=== PATIENT | male | born 1980 | race Caucasian/White ===

== ENCOUNTER 2017-10-15 05:38 | Inpatient (IN) | payer OTHER ==
[2017-10-15] MEDS ORDERED: IV FLUID CONTINUATION 1,000 ML IV ONE (06:30)
[2017-10-15] MEDS ORDERED: HEPARIN SODIUM 1,000 UN/ML (10ML VL) IV ONE (06:43)
[2017-10-15] MEDS ORDERED: MIDAZOLAM 2 MG/2 ML VIAL IV ONE (06:44)
[2017-10-15] MEDS ORDERED: METOPROLOL TARTRATE 5 MG/5 ML VIAL IVP ONE ×2 (06:45→07:02)
[2017-10-15] MEDS ORDERED: LIDOCAINE 1% INJ 10MG/ML (20 ML MDV) SQ ONE (06:45)
[2017-10-15] MEDS: fentaNYL (PF) 50 MCG/ML 2 ML AMP IV ONE ×2 (06:52→07:20)
[2017-10-15] MEDS ORDERED: ONDANSETRON 4 MG/2 ML VIAL IVP ONE (06:55)
[2017-10-15] MEDS ORDERED: TICAGRELOR 90 MG TAB PO ONE (07:10)
[2017-10-15] MEDS ORDERED: BIVALIRUDIN BOLUS 250 MG/50 ML IV ONE (07:10)
[2017-10-15] MEDS ORDERED: BIVALIRUDIN 250 MG in SODIUM CHLORIDE 0.9% 50 ML IV ONE (07:11)
[2017-10-15] MEDS: NITROGLYCERIN 1000MCG/10ML SYRINGE INTRACORON ONE ×2 (07:16→07:18)
[2017-10-15] MEDS ORDERED: IOPAMIDOL-370 125ML BTL INJ ONE (07:20)
[2017-10-15] MEDS ORDERED: IOPAMIDOL-370 100ML BTL INJ ONE (07:24)
[2017-10-15] MEDS: SODIUM CHLORIDE 0.9% 1,000 ML IV SCH ×2 (08:00→14:30)
[2017-10-15] MEDS ORDERED: HYDROcodone/APAP 5-325MG 1 EACH TAB ONE (10:44)
[2017-10-15] MEDS ORDERED: HYDROcodone/APAP 5-325MG 1 EACH TAB PO PRN (10:50)
--- NOTE | 2017-10-15 11:09 | CC ---
CARDIAC CATHETERIZATION REPORT Mr. Day is a 36-year-old gentleman who came to the emergency room with a complaint of prolonged chest pain, started about 3 hours prior to coming to the emergency room. In the emergency room, EKG showed evidence of ST-segment elevation in the inferior leads with peaked T-wave in the anterior leads and ST depression in 1 and aVL. The patient's blood pressure was significantly elevated. The patient denied any history of diabetes, hypertension or taking of any drugs. In view of the EKG suggestive of acute ST-segment elevation myocardial infarction, patient was advised immediate cardiac catheterization. PROCEDURE: The right groin was prepped and draped in the usual manner and the skin was infiltrated with 2% Xylocaine. The right femoral artery was entered using Seldinger technique and a #6-Divehi sheath was placed in. Selective coronary angiography was then performed in multiple projections and the left ventricular pressures were obtained. The patient tolerated the procedure well. HEMODYNAMICS: Left ventricular end-diastolic pressure is 20 to 24 mmHg prior to angiography. No gradient is noted across the aortic valve. SELECTIVE CORONARY ANGIOGRAPHY: Left main coronary artery is normal and patent. LAD is a good caliber blood vessel and gives rise to first small size diagonal branch. The diagonal branch is diffusely diseased. The mid LAD is 100% occluded. Circumflex coronary artery is a large caliber blood vessel and has about 80% to 85% stenosis in its proximal portion. Right coronary artery diffusely diseased but without any hemodynamically significant stenosis. RECOMMENDATIONS: Films were reviewed with Dr. Ovalle. We will proceed with a stent to the LAD, may consider stent to the circumflex coronary artery in the next 48 hours. MMODL / IJN: [id number] /
[2017-10-15] MEDS ORDERED: ATROPINE SULFATE 0.1 MG/ML 10ML SYRINGE IV PRN (11:15)
[2017-10-15] MEDS ORDERED: NITROGLYCERIN SL TABS 0.4 MG TAB SUBLINGUAL PRN (11:15)
[2017-10-15] MEDS ORDERED: MAG HYDROX/AL HYDROX/SIMETH 30 ML CUP PO PRN (11:15)
[2017-10-15] MEDS ORDERED: ALPRAZolam 0.25 MG TAB PO PRN (11:15)
--- NOTE | 2017-10-15 11:15 | PTCA ---
PERCUTANEOUSTRANS CORORONARY ANGIOGRAPHY DATE OF SERVICE: 10/15/2017 PERFORMING PHYSICIAN: Sidney Ovalle MD, delivery merchandiser. PROCEDURE PERFORMED: 1. An aspiration thrombectomy from the left anterior descending artery. 2. Successful stenting of the mid LAD using 2.75 x 28 mm Xience CATHI with good angiographic results. INDICATION: This is a pleasant 36-year-old gentleman with hypertension who presented to the hospital with chest discomfort and was diagnosed with acute inferior ST-elevation myocardial infarction associated with peaked T-wave in the anterior leads. Because of that, the patient was seen and evaluated by Dr. Reynoso and because of the ST-segment elevation, emergent heart catheterization was recommended. The patient underwent a heart catheterization and was found to have occluded LAD in the midportion associated with severe disease in the proximal left circumflex coronary artery with mild to moderate disease involving the RCA. APPROACH: Right common femoral artery. COMPLICATION: None. LEVEL OF SEDATION: Moderate with sedation length of 24 minutes. His door to balloon was 87 minutes. PROCEDURE DESCRIPTION: After diagnostic heart catheterization was performed by Dr. Efraín Reynoso and after reviewing the angiogram, we decided to pursue with intervention on the LAD. Anticoagulation was initiated using Angiomax. Subsequently I took an XP35 LAD guide and the left main was engaged. A BMW wire was used to cross the acute total occlusion in the mid LAD. Subsequently I did an aspiration thrombectomy of the mid LAD using the export catheter. After that, I was able to restore the flow in the LAD and I was able to extract the red thrombus from the LAD as well. After that, I did direct stenting of the LAD. After I gave the patient 200 mcg of IC nitroglycerin. I did direct stenting using 2.75 x 28 mm Xience CATHI where the stent was positioned under fluoroscopy guidance and deployed under its nominal pressure. The following angiogram showed good angiographic results and the procedure was completed without any complication. POSTPROCEDURE MANAGEMENT: 1. Dual antiplatelet therapy. 2. Risk factors modifications. 3. Follow up with the patient. MMODL / IJN: [id number] /
[2017-10-15] MEDS: HYDROmorphone 0.5 MG/0.5 ML SYRINGE IVP PRN ×3 (12:14→19:43)
[2017-10-15 12:20] LABS: Glucose,Whole Blood 165 mg/dL (75-99)
[2017-10-15 12:32] LABS: D-Dimer 0.19 mg/L FEU (<0.60); INR 1.1 (<1.2); Partial Thromboplastin Time 24.9 sec (22.0-30.0); Prothrombin Time 10.9 sec (9.0-12.0)
--- NOTE | 2017-10-15 12:32 | XR ---
Frontal chest x-ray HISTORY: Chest pain Single frontal view of the chest. No comparisons Patient is rotated. There are overlying cardiac leads. Heart size is borderline increased. No evident airspace disease, pneumothorax, or pleural effusion. Pulmonary vascularity and cm within normal li mits. IMPRESSION: There may be cardiomegaly.
[2017-10-15 12:35] LABS: Basophils # (A) 0.1 k/uL (0-0.2); Basophils % (A) 1 %; Eosinophils # (A) 0.1 k/uL (0-0.7); Eosinophils % (A) 1 %; HCT 50.5 % (39.0-53.0); HGB 17.6 gm/dL (13.0-17.5); Lymphocytes # (A) 2.6 k/uL (1.0-4.8); Lymphocytes % (A) 22 %; MCH 29.1 pg (25.0-35.0); MCHC 34.9 g/dL (31.0-37.0); MCV 83.5 fL (80.0-100.0); Mean Platelet Volume 7.1; Monocytes # (A) 0.6 k/uL (0-1.0); Monocytes % (A) 5 %; Neutrophils # (A) 8.3 k/uL (1.3-7.7); Neutrophils % (A) 71 %; Platelet Count 177 k/uL (150-450); RBC 6.05 m/uL (4.30-5.90); RDW 14.1 % (11.5-15.5); WBC 11.7 k/uL (3.8-10.6)
[2017-10-15] MEDS: INSULIN ASPART 100 UNIT/ML 1 ML 10 ML VIAL SQ SCH ×3 (13:00→21:49)
[2017-10-15 13:21] LABS: ALT 171 U/L (21-72); AST 92 U/L (17-59); Albumin 4.6 g/dL (3.5-5.0); Alkaline Phosphatase 169 U/L (38-126); Anion Gap 16 mmol/L; Blood Urea Nitrogen 7 mg/dL (9-20); Carbon Dioxide 24 mmol/L (22-30); Chloride 100 mmol/L (98-107); Glucose 259 mg/dL (74-99); Potassium 3.8 mmol/L (3.5-5.1); Sodium 140 mmol/L (137-145); Total Bilirubin 0.9 mg/dL (0.2-1.3); Total Protein 7.7 g/dL (6.3-8.2)
[2017-10-15] MEDS ORDERED: amLODIPine 5 MG TAB PO STA (13:36)
[2017-10-15] MEDS ORDERED: METOPROLOL TARTRATE 25 MG TAB PO STA (13:36)
[2017-10-15 15:13] LABS: Creatine Kinase MB 4.1 ng/mL (0.0-2.4); Troponin I 0.199 ng/mL (0.000-0.034)
[2017-10-15] MEDS: EZETIMIBE 10 MG TAB PO SCH (15:44)
--- NOTE | 2017-10-15 17:05 | CT ---
EXAM: CT Chest Without Intravenous Contrast. CLINICAL HISTORY: Chest pain with suspected dissection. TECHNIQUE: Axial computed tomography images of the chest without intravenous contrast. CTDI is 25.9 mGy and DLP is 1481 mGy-cm. This CT exam was performed using one or more of the following dose reduction techniques: automated exposure control, adjustment of the mA and/or kV according to patient size, and/or use of iterative reconstruction technique. COMPARISON: No relevant prior studies available. FINDINGS: Lungs: No airspace consolidation, interstitial edema or significant atelectasis. Pleural spaces: No evidence of pneumothorax. No pleural effusion. Heart: Heart size normal. No pericardial effusion. Mild coronary artery calcifications.. Vasculature: The thoracic aorta is of normal caliber. Absence of intravenous contrast limits evaluation for aortic dissection. Lymph nodes: Unremarkable. No enlarged lymph nodes. Bones: Unremarkable. No acute fracture. IMPRESSION: No evidence of thoracic aortic aneurysmal dilatation. Mild coronary artery calcifications. No cardiomegaly or pericardial effusion. No acute pulmonary process.
[2017-10-15] MEDS: METOPROLOL TARTRATE 25 MG TAB PO SCH ×2 (17:27→21:53)
[2017-10-15 17:31] LABS: Glucose,Whole Blood 186 mg/dL (75-99)
[2017-10-15] MEDS ORDERED: LISINOPRIL 10 MG TAB PO STA (18:03)
[2017-10-15] MEDS ORDERED: NITROGLYCERIN OINT 1 INCH/GM PACKET TOPICAL STA (18:05)
[2017-10-15 20:10] LABS: Hemoglobin A1C 9.4 % (4.0-6.0)
[2017-10-15] MEDS ORDERED: ATORVASTATIN 80 MG TAB PO SCH (21:00)
[2017-10-15] MEDS ORDERED: ZOLPIDEM 5 MG TAB PO PRN (21:00)
[2017-10-15] MEDS ORDERED: METOPROLOL TARTRATE 25 MG TAB PO SCH (21:00)
[2017-10-15 21:03] LABS: Glucose,Whole Blood 209 mg/dL (75-99)
--- NOTE | 2017-10-15 21:07 | P.HPIM ---
History of Present Illness This is a pleasant 36 years old male with past medical history of hypertension, obesity, herniated disc with chronic back pain, right elbow fracture, who presents because of chest pain of one-day duration. Patient was to found STEMI [ ST elevation myocardial infarction] and he underwent an immediate cardiac cath on 10/15/2017, S/P aspiration thrombectomy of the left anterior descending artery and successful stenting of the mid LAD. However hoop cutter were considering stenting the circumference coronary artery in 48 hours as it is a large artery with 80-85% stenosis. On admission patient underwent CT scan of the chest abdomen and pelvis for suspected dissecting aortic aneurysm which found thoracic character of normal caliber with no evidence of aortic dissection or aneurysm as per radiology report. Chest x-ray shows cardiomegaly. Labs shows mild leukocytosis at 11.7 K. Hemoglobin 17.6 platelet count within normal at 177. INR 1.1. D-dimer 0.9 need which is not elevated. Creatinine 0.5. Sodium 140. Potassium 3.8. While troponin were elevated at 0.19. Liver enzymes were mildly elevated Review of Systems CONSTITUTIONAL: No fever, no malaise, no fatigue. HEENT: No recent visual problems or hearing problems. Denied any sore throat. CARDIOVASCULAR: No orthopnea, PND, no palpitations, no syncope. PULMONARY: No shortness of breath, no cough, no hemoptysis. GASTROINTESTINAL: No diarrhea, no nausea, no vomiting, no abdominal pain. Normoactive bowel sounds. NEUROLOGICAL: No headaches, no weakness, no numbness. HEMATOLOGICAL: Denies any bleeding or petechiae. GENITOURINARY: Denies any burning micturition, frequency, or urgency. MUSCULOSKELETAL/RHEUMATOLOGICAL: Denies any joint pain, swelling, or any muscle pain. ENDOCRINE: Denies any polyuria or polydipsia. Past Medical History Past Medical History: Hypertension Additional Past Medical History / Comment(s): hernia repair (6 years old), herniated disc (20ft fall from ladder when was 18 years old), right elbow fx; right ankle: fx & sprains; History of Any Multi-Drug Resistant Organisms: None Reported Past Surgical History: Adenoidectomy, Heart Catheterization With Stent, Tonsillectomy Past Anesthesia/Blood Transfusion Reactions: No Reported Reaction Date of Last Stent Placement:: 10/15/2017 Smoking Status: Current every day smoker - Past Family History Father History Unknown: Yes Mother Family Medical History: Fibromyalgia Medications and Allergies Home Medications Medication Instructions Recorded Confirmed Type HYDROcodone/APAP 5-325MG [[place] 1 tab PO Q24HR PRN 10/15/17 10/15/17 History 5-325] Ibuprofen [Motrin Ib] 800 mg PO BID PRN 10/15/17 10/15/17 History Penicillin V Potassium [Pen Vee K] 500 mg PO TID 10/15/17 10/15/17 History amLODIPine BESYLATE/BENAZEPRIL 1 cap PO DAILY 10/15/17 10/15/17 History [Lotrel 10-40 mg Capsule] Allergies Allergy/AdvReac Type Severity Reaction Status Date / Time No Known Allergies Allergy Verified 10/15/17 10:49 Physical Exam Vitals: Vital Signs Temp Pulse Resp BP BP Pulse Ox 10/15/17 19:36 172/102 10/15/17 19:30 73 30 H 157/94 96 10/15/17 19:00 88 22 166/91 97 10/15/17 18:45 75 18 169/95 97 10/15/17 18:30 80 28 H 163/96 97 10/15/17 18:15 82 25 H 178/96 97 10/15/17 18:00 82 23 178/94 97 10/15/17 17:45 81 9 L 184/104 98 10/15/17 17:30 70 20 176/102 97 10/15/17 17:15 74 18 177/103 97 10/15/17 17:00 83 22 182/88 98 10/15/17 16:45 73 32 H 184/105 98 10/15/17 16:30 70 19 172/95 98 10/15/17 16:15 82 25 H 181/94 97 10/15/17 16:00 98.8 F 71 18 180/98 98 10/15/17 15:45 83 31 H 183/101 98 10/15/17 15:30 81 21 176/99 98 10/15/17 15:15 76 23 170/98 98 10/15/17 15:00 78 16 175/101 97 10/15/17 14:45 77 19 172/98 98 10/15/17 14:30 71 26 H 165/93 98 10/15/17 14:15 71 24 165/90 97 10/15/17 14:00 71 30 H 172/93 98 10/15/17 13:45 80 22 159/85 98 10/15/17 13:30 75 24 166/100 98 10/15/17 13:15 68 24 162/95 97 10/15/17 13:00 67 26 H 160/95 98 10/15/17 12:45 68 23 156/91 97 10/15/17 12:30 87 37 H 160/88 98 10/15/17 12:15 72 16 165/97 98 10/15/17 12:00 98.6 F 79 18 161/93 98 10/15/17 11:45 85 19 165/99 98 10/15/17 11:30 81 25 H 157/92 98 10/15/17 11:15 82 24 171/97 99 10/15/17 11:00 82 27 H 164/104 98 10/15/17 10:45 82 9 L 192/123 98 10/15/17 10:30 70 24 176/107 98 10/15/17 10:15 77 7 L 173/108 99 10/15/17 10:00 75 9 L 169/106 99 10/15/17 09:45 74 19 175/107 99 10/15/17 09:44 70 9 L 175/107 99 Intake and Output 10/15/17 10/15/17 10/15/17 06:59 14:59 22:59 Intake Total 275 1041 Output Total 600 600 Balance 275 441 -600 Intake: IV 275 41 Intake, IV Titration 600 Amount Sodium Chloride 0.9% 1, 600 000 ml @ 100 mls/hr IV . Q6H [facility] Rx#:[id number] Oral 400 Output: Urine 600 600 Other: # Voids 1 1 Weight 120.3 kg GENERAL: The patient is alert and oriented x3, not in any acute distress. Well developed, well nourished. HEENT: Pupils are round and equally reacting to light. EOMI. No scleral icterus. No conjunctival pallor. Normocephalic, atraumatic. No pharyngeal erythema. No thyromegaly. CARDIOVASCULAR: S1 and S2 present. No murmurs, rubs, or gallops. PULMONARY: Chest is clear to auscultation, no wheezing or crackles. ABDOMEN: Soft, nontender, nondistended, normoactive bowel sounds. No palpable organomegaly. MUSCULOSKELETAL: No joint swelling or deformity. EXTREMITIES: No cyanosis, clubbing, or pedal edema. NEUROLOGICAL: Gross neurological examination did not reveal any focal deficits. SKIN: No rashes. Results CBC & Chem 7: 10/15/17 06:00 10/15/17 06:00 Labs: Abnormal Lab Results - Last 24 Hours (Table) 10/15/17 10/15/17 10/15/17 Range/Units 06:00 06:00 06:00 WBC 11.7 H (3.8-10.6) k/uL RBC 6.05 H (4.30-5.90) m/uL Hgb 17.6 H (13.0-17.5) gm/dL Neutrophils # 8.3 H (1.3-7.7) k/uL BUN 7 L (9-20) mg/dL Creatinine 0.54 L (0.66-1.25) mg/dL Glucose 259 H (74-99) mg/dL POC Glucose (mg/dL) (75-99) mg/dL AST 92 H (17-59) U/L ALT 171 H (21-72) U/L Alkaline Phosphatase 169 H (38-126) U/L CK-MB (CK-2) 4.1 H* (0.0-2.4) ng/mL Troponin I 0.199 H* (0.000-0.034) ng/mL 10/15/17 10/15/17 Range/Units 12:18 17:28 WBC (3.8-10.6) k/uL RBC (4.30-5.90) m/uL Hgb (13.0-17.5) gm/dL Neutrophils # (1.3-7.7) k/uL BUN (9-20) mg/dL Creatinine (0.66-1.25) mg/dL Glucose (74-99) mg/dL POC Glucose (mg/dL) 165 H 186 H (75-99) mg/dL AST (17-59) U/L ALT (21-72) U/L Alkaline Phosphatase (38-126) U/L CK-MB (CK-2) (0.0-2.4) ng/mL Troponin I (0.000-0.034) ng/mL Thrombosis Risk Factor Assmnt - Choose All That Apply Each Factor Represents 1 point: Obesity (BMI >25) Thrombosis Risk Factor Assessment Total Risk Factor Score: 1 Thrombosis Risk Factor Assessment Level: Low Risk Assessment and Plan Assessment: -Acute STEMI, S/P immediate cardiac cath with thrombectomy and stent placement -Chest pain secondary to above, completely resolved by the time I saw patient -Hypertension, essential -Leukocytosis, mostly reactive -Elevated liver enzymes, -chronic back pain Plan: Continue with the same treatment, continue with symptomatic treatment. Cardiology team did cardiac cath and they are following the patient. Patient chest pain is resolved. However patient might need another stenting procedure for the circumflex coronary artery. Patient continued to need intensive care monitoring. He was on antihypertensive medication lisinopril, metoprolol Norvasc. Continue with statin and Zetia. Patient states is on aspirin and Brilinta for his heart disease and stent. Pain management. Monitor lytes and vitals. Continue with GI and DVT prophylaxis. Further recommendation based on the clinical course of the patient. Prognosis remains guarded Time with Patient: Greater than 30
[2017-10-15] MEDS: TICAGRELOR 90 MG TAB PO SCH (21:49)
[2017-10-16] MEDS ORDERED: NITROGLYCERIN OINT 1 INCH/GM PACKET TOPICAL SCH
[2017-10-16] MEDS: NITROGLYCERIN OINT 1 INCH/GM PACKET TOPICAL SCH ×3 (00:43→15:41)
[2017-10-16] MEDS: HYDROcodone/APAP 5-325MG 1 EACH TAB PO PRN ×2 (03:08→23:39)
[2017-10-16 03:28] LABS: Glucose,Whole Blood 236 mg/dL (75-99)
[2017-10-16 05:32] LABS: Basophils # (A) 0.1 k/uL (0-0.2); Basophils % (A) 1 %; Eosinophils # (A) 0.2 k/uL (0-0.7); Eosinophils % (A) 1 %; HCT 50.1 % (39.0-53.0); HGB 16.7 gm/dL (13.0-17.5); Lymphocytes # (A) 2.6 k/uL (1.0-4.8); Lymphocytes % (A) 19 %; MCH 28.3 pg (25.0-35.0); MCHC 33.2 g/dL (31.0-37.0); MCV 85.2 fL (80.0-100.0); Mean Platelet Volume 6.7; Monocytes # (A) 0.9 k/uL (0-1.0); Monocytes % (A) 6 %; Neutrophils # (A) 10.2 k/uL (1.3-7.7); Neutrophils % (A) 72 %; Platelet Count 181 k/uL (150-450); RBC 5.89 m/uL (4.30-5.90); RDW 13.9 % (11.5-15.5); WBC 14.1 k/uL (3.8-10.6)
[2017-10-16 05:50] LABS: Anion Gap 12 mmol/L; Blood Urea Nitrogen 11 mg/dL (9-20); Calcium 9.1 mg/dL (8.4-10.2); Carbon Dioxide 24 mmol/L (22-30); Chloride 102 mmol/L (98-107); Cholesterol 170 mg/dL (<200); Glucose 190 mg/dL (74-99); HDL Cholesterol 23 mg/dL (40-60); Sodium 138 mmol/L (137-145); Triglycerides 444 mg/dL (<150)
--- NOTE | 2017-10-16 06:50 | ECHOF ---
Referral Reason:post STEMI MEASUREMENTS -------- HEIGHT: 182.9 cm WEIGHT: 120.2 kg BP: 159/85 RVIDd: 3.0 cm (< 3.3) IVSd: 1.8 cm (0.6 - 1.1) LVIDd: 4.1 cm (3.9 - 5.3) LVPWd: 1.6 cm (0.6 - 1.1) IVSs: 2.1 cm LVIDs: 2.9 cm LVPWs: 1.8 cm LA Diam: 3.5 cm (2.7 - 3.8) LAESV Index (A-L): 17.93 ml/m Ao Diam: 3.7 cm (2.0 - 3.7) AV Cusp: 2.8 cm (1.5 - 2.6) MV EXCURSION: 21.866 mm (> 18.000) MV EF SLOPE: 119 mm/s (70 - 150) EPSS: 0.6 cm MV E Khoa: 0.93 m/s MV DecT: 176 ms MV A Khoa: 0.78 m/s MV E/A Ratio: 1.19 FINDINGS -------- Sinus rhythm. This was a technically adequate study. The left ventricular size is normal. There is moderate concentric left ventricular hypertrophy. O verall left ventricular systolic function is moderately impaired with, an EF between 35 - 40 %. Api juan anterior LV wall motion is hypokinetic. Apical inferior LV wall motion is hypokinetic. Apic al septum LV wall motion is hypokinetic. The right ventricle is normal in size. Normal LA size by volume 22+/-6 ml/m2. The right atrium is normal in size. The aortic valve is trileaflet and appears structurally normal. The mitral valve is normal. The tricuspid valve appears structurally normal. There is no pulmonic regurgitation present. The aortic root size is normal. IVC Not well visulized. There is no pericardial effusion. CONCLUSIONS -------- 1. Sinus rhythm. 2. This was a technically adequate study. 3. The left ventricular size is normal. 4. Overall left ventricular systolic function is moderately impaired with, an EF between 35 - 40 %. 5. Apical anterior LV wall motion is hypokinetic. 6. Apical inferior LV wall motion is hypokinetic. 7. Apical septum LV wall motion is hypokinetic. 8. The right ventricle is normal in size. 9. Normal LA size by volume 22+/-6 ml/m2. 10. The right atrium is normal in size. 11. The aortic valve is trileaflet and appears structurally normal. 12. The mitral valve is normal. 13. The tricuspid valve appears structurally normal. 14. There is no pulmonic regurgitation present. 15. The aortic root size is normal. 16. IVC Not well visulized. 17. There is no pericardial effusion. ORDNANCE HANDLER: Dottie Chacon RDCS
[2017-10-16 07:11] LABS: ALT 135 U/L (21-72); AST 104 U/L (17-59); Alkaline Phosphatase 139 U/L (38-126)
[2017-10-16 07:26] LABS: Glucose,Whole Blood 206 mg/dL (75-99)
[2017-10-16] MEDS: INSULIN ASPART 100 UNIT/ML 1 ML 10 ML VIAL SQ SCH ×4 (07:29→21:14)
[2017-10-16] MEDS: EZETIMIBE 10 MG TAB PO SCH (08:13)
[2017-10-16] MEDS: LISINOPRIL 20 MG TAB PO SCH (08:13)
[2017-10-16] MEDS: ASPIRIN 81 MG PO SCH (08:13)
[2017-10-16] MEDS: METOPROLOL TARTRATE 25 MG TAB PO SCH ×4 (08:13→23:36)
[2017-10-16] MEDS: TICAGRELOR 90 MG TAB PO SCH ×2 (08:13→21:15)
[2017-10-16] MEDS ORDERED: LISINOPRIL 10 MG TAB PO SCH (09:00)
[2017-10-16] MEDS ORDERED: NITROGLYCERIN SL TABS 0.4 MG TAB SUBLINGUAL PRN (10:04)
[2017-10-16] MEDS ORDERED: ALPRAZolam 0.5 MG TAB PO PRN (10:04)
[2017-10-16] MEDS ORDERED: ALPRAZolam 0.25 MG TAB PO PRN (10:04)
[2017-10-16] MEDS ORDERED: SODIUM CHLORIDE 0.9% 1,000 ML in EMPTY BAG 1 BAG IV ONE (10:04)
[2017-10-16] MEDS ORDERED: ASPIRIN 325 MG TAB PO STA (10:10)
[2017-10-16] MEDS ORDERED: ATORVASTATIN 80 MG TAB PO STA (10:10)
--- NOTE | 2017-10-16 11:18 | PN ---
PROGRESS NOTE This is a 36-year-old gentleman who was admitted to hospital with acute myocardial infarction underwent emergent cardiac catheterization and angioplasty of a totally occluded LAD with thrombectomy. He also has a hemodynamically significant lesion in [place] circumflex coronary artery. He is doing well this morning. Denies chest pain, difficulty in breathing or palpitations. PHYSICAL EXAMINATION: On exam, comfortable at rest. Vital signs are stable. There is no jugular venous distention. Chest exam reveals good air entry bilaterally. Heart exam reveals first and second heart sounds. No gallop. No murmur. Abdomen is soft, nontender. Examination of extremities did not reveal any edema. Peripheral pulses are felt. Groin is free of bleeding, bruit, hematoma. LABS: Labs show a hemoglobin of 16.7, platelet count is 180. Potassium is 4. Creatinine is 0.6. His LDL cholesterol is 170. Blood sugars are elevated. The patient is currently on aspirin, Lipitor, insulin, Zestril, Lopressor, nitro paste, and Brilinta. ASSESSMENT: Acute anterior wall myocardial infarction, status post catheterization and angioplasty. PLAN: Patient will continue current medications, transfer to selective care. We will talk to the rip and groove machine operator whether he plans to do angioplasty of the circumflex on this admission or not. MMODL / IJN: [id number] /
[2017-10-16 11:58] LABS: Glucose,Whole Blood 238 mg/dL (75-99)
[2017-10-16] MEDS ORDERED: INSULIN ASPART 100 UNIT/ML 1 ML 10 ML VIAL SQ ONE (12:10)
[2017-10-16 12:51] LABS: Glucose,Whole Blood 203 mg/dL (75-99)
[2017-10-16 13:10] VITALS: BMI 36.0
--- NOTE | 2017-10-16 16:53 | P.PN ---
Subjective This is a pleasant 36 years old male with past medical history of hypertension, obesity, herniated disc with chronic back pain, right elbow fracture, who presents because of chest pain of one-day duration. Patient was to found STEMI [ ST elevation myocardial infarction] and he underwent an immediate cardiac cath on 10/15/2017, S/P aspiration thrombectomy of the left anterior descending artery and successful stenting of the mid LAD. However kier boiler were considering stenting the circumflex coronary artery in 48 hours as it is a large artery with 80-85% stenosis. On admission patient underwent CT scan of the chest abdomen and pelvis for suspected dissecting aortic aneurysm which found thoracic character of normal caliber with no evidence of aortic dissection or aneurysm as per radiology report. Chest x-ray shows cardiomegaly. Labs shows mild leukocytosis at 11.7 K. Hemoglobin 17.6 platelet count within normal at 177. INR 1.1. D-dimer 0.9 which is not elevated. Creatinine 0.5. Sodium 140. Potassium 3.8. While troponin were elevated at 0.19. Liver enzymes were mildly elevated 10/16/2017 Patient is denying chest pain. No dyspnea. No change in urine or bowel habits. No fever. Patient states has history of prediabetes. Patient informed he has diabetes now and he verbalized understanding. Diabetic teaching was done today.. For nutrition consult. Patient was started on Lantus. Patient is going for a second cardiac cath for his circumflex artery Objective - Vital Signs Vital signs: Vital Signs Temp 98.3 F 10/16/17 16:00 Pulse 85 10/16/17 16:00 Resp 16 10/16/17 16:00 BP 121/56 10/16/17 16:00 Pulse Ox 96 10/16/17 16:00 Intake & Output 10/15/17 10/16/17 10/16/17 18:59 06:59 18:59 Intake Total 1041 480 800 Output Total 1200 750 400 Balance -159 -270 400 Weight 120.3 kg 120.6 kg 120.6 kg Intake: IV 41 Intake, IV Titration 600 Amount Sodium Chloride 0.9% 1, 600 000 ml @ 100 mls/hr IV . Q6H [facility] Rx#:[id number] Oral 400 480 800 Output: Urine 1200 750 400 Other: # Voids 1 1 1 - Exam GENERAL: The patient is alert and oriented x3, not in any acute distress. Well developed, well nourished. HEENT: Pupils are round and equally reacting to light. EOMI. No scleral icterus. No conjunctival pallor. Normocephalic, atraumatic. No pharyngeal erythema. No thyromegaly. CARDIOVASCULAR: S1 and S2 present. No murmurs, rubs, or gallops. . Dressing in place PULMONARY: Chest is clear to auscultation, no wheezing or crackles. ABDOMEN: Soft, nontender, nondistended, normoactive bowel sounds. No palpable organomegaly. MUSCULOSKELETAL: No joint swelling or deformity. EXTREMITIES: No cyanosis, clubbing, or pedal edema. NEUROLOGICAL: Gross neurological examination did not reveal any focal deficits. SKIN: No rashes. - Labs CBC & Chem 7: 10/16/17 05:02 10/16/17 05:02 Labs: Abnormal Lab Results - Last 24 Hours (Table) 10/15/17 10/15/17 10/15/17 Range/Units 06:00 06:04 08:00 WBC (3.8-10.6) k/uL Neutrophils # (1.3-7.7) k/uL Creatinine (0.66-1.25) mg/dL Glucose (74-99) mg/dL POC Glucose (mg/dL) 236 H 203 H (75-99) mg/dL Hemoglobin A1c 9.4 H (4.0-6.0) % AST (17-59) U/L ALT (21-72) U/L Alkaline Phosphatase (38-126) U/L Troponin I (0.000-0.034) ng/mL Triglycerides (<150) mg/dL HDL Cholesterol (40-60) mg/dL 10/15/17 10/15/17 10/16/17 Range/Units 17:28 21:01 05:02 WBC 14.1 H (3.8-10.6) k/uL Neutrophils # 10.2 H (1.3-7.7) k/uL Creatinine (0.66-1.25) mg/dL Glucose (74-99) mg/dL POC Glucose (mg/dL) 186 H 209 H (75-99) mg/dL Hemoglobin A1c (4.0-6.0) % AST (17-59) U/L ALT (21-72) U/L Alkaline Phosphatase (38-126) U/L Troponin I (0.000-0.034) ng/mL Triglycerides (<150) mg/dL HDL Cholesterol (40-60) mg/dL 10/16/17 10/16/17 10/16/17 Range/Units 05:02 05:02 05:02 WBC (3.8-10.6) k/uL Neutrophils # (1.3-7.7) k/uL Creatinine 0.62 L (0.66-1.25) mg/dL Glucose 190 H (74-99) mg/dL POC Glucose (mg/dL) (75-99) mg/dL Hemoglobin A1c (4.0-6.0) % AST 104 H (17-59) U/L ALT 135 H (21-72) U/L Alkaline Phosphatase 139 H (38-126) U/L Troponin I 6.460 H* (0.000-0.034) ng/mL Triglycerides 444 H (<150) mg/dL HDL Cholesterol 23 L (40-60) mg/dL 10/16/17 10/16/17 Range/Units 07:25 11:56 WBC (3.8-10.6) k/uL Neutrophils # (1.3-7.7) k/uL Creatinine (0.66-1.25) mg/dL Glucose (74-99) mg/dL POC Glucose (mg/dL) 206 H 238 H (75-99) mg/dL Hemoglobin A1c (4.0-6.0) % AST (17-59) U/L ALT (21-72) U/L Alkaline Phosphatase (38-126) U/L Troponin I (0.000-0.034) ng/mL Triglycerides (<150) mg/dL HDL Cholesterol (40-60) mg/dL Assessment and Plan Assessment: -Acute STEMI, S/P immediate cardiac cath with thrombectomy and stent placement -Chest pain secondary to above, completely resolved by the time I saw patient -Hypertension, essential -Leukocytosis, mostly reactive -Elevated liver enzymes, -chronic back pain -New-onset diabetes mellitus, hemoglobin A1c 9.4% (patient informed) Plan: Continue with the same treatment, continue with symptomatic treatment. Cardiology team did cardiac cath and they are following the patient. Patient chest pain is resolved. However patient might need another stenting procedure for the circumflex coronary artery. Patient continued to need intensive care monitoring. He was on antihypertensive medication lisinopril, metoprolol Norvasc. Continue with statin and Zetia. Patient states is on aspirin and Brilinta for his heart disease and stent. Start Lantus 15 units at bedtime for high hemoglobin A1c. Nutrition consult. Continue with Pain management. Monitor lytes and vitals. Continue with GI and DVT prophylaxis. Further recommendation based on the clinical course of the patient. Prognosis remains guarded
[2017-10-16 17:11] LABS: Glucose,Whole Blood 216 mg/dL (75-99)
--- NOTE | 2017-10-16 17:21 | CC ---
CARDIAC CATHETERIZATION REPORT Mr. Day is a 36-year-old gentleman who came to the emergency room with a complaint of severe chest pain. Patient's pain started about 3 hours prior to coming into the emergency room. EKG was suggestive of inferior wall myocardial infarction. In view of that, the patient was recommended to have a cardiac catheterization. Patient has a history of smoking. He was quite hypertensive in the emergency room, which improved with IV medications, but the patient has not been taking any medications for hypertension. He has been told that he is prediabetic but has not been taking medications. There is no family history of coronary artery disease and patient denies any history of IV drug abuse. Review of systems is otherwise unremarkable. PAST MEDICAL HISTORY: 1. Adenoidectomy. 2. Tonsillectomy. 3. Herniated disc. HOME MEDICATIONS: 1. Motrin. 2. Amlodipine. 3. Hydrocodone. PHYSICAL EXAMINATION: Physical examination initially in the emergency room revealed a 36-year-old gentleman with a blood pressure of 210/80 mmHg. Head/ENT examination was negative. Neck was supple. There was no increase in jugular venous pressure. Both the carotid pulses were felt. There was no bruit. CHEST: Symmetrical. HEART: The PMI was not felt. First and second heart sounds were normal. There was no evidence of any murmur. LUNGS: Clinically clear to auscultation and percussion. Abdomen was negative. EKG showed evidence of ST-segment elevation in the inferior leads. There were hyperacute T-waves anterior. FINAL IMPRESSION: Acute myocardial infarction. Patient was advised urgent cardiac catheterization. MMODL / IJN: [id number] /
[2017-10-16] MEDS: HYDROmorphone 0.5 MG/0.5 ML SYRINGE IVP PRN (19:58)
[2017-10-16 20:41] LABS: Glucose,Whole Blood 181 mg/dL (75-99)
[2017-10-16] MEDS ORDERED: INSULIN DETEMIR 100 UNIT/ML 10 ML VIAL SQ SCH (21:00)
[2017-10-16] MEDS: INSULIN DETEMIR 100 UNIT/ML 10 ML VIAL SQ SCH (21:15)
[2017-10-17 05:03] LABS: Basophils % (A) 0 %; Eosinophils # (A) 0.3 k/uL (0-0.7); Eosinophils % (A) 2 %; HCT 46.2 % (39.0-53.0); HGB 15.3 gm/dL (13.0-17.5); Lymphocytes # (A) 3.2 k/uL (1.0-4.8); Lymphocytes % (A) 28 %; MCHC 33.1 g/dL (31.0-37.0); MCV 84.8 fL (80.0-100.0); Mean Platelet Volume 6.7; Monocytes # (A) 0.7 k/uL (0-1.0); Monocytes % (A) 6 %; Neutrophils % (A) 62 %; Platelet Count 145 k/uL (150-450); RBC 5.45 m/uL (4.30-5.90); RDW 13.8 % (11.5-15.5); WBC 11.3 k/uL (3.8-10.6)
[2017-10-17 05:11] LABS: Anion Gap 9 mmol/L; Blood Urea Nitrogen 15 mg/dL (9-20); Calcium 8.8 mg/dL (8.4-10.2); Carbon Dioxide 25 mmol/L (22-30); Chloride 102 mmol/L (98-107); Glucose 176 mg/dL (74-99); Magnesium 1.9 mg/dL (1.6-2.3); Potassium 3.8 mmol/L (3.5-5.1); Sodium 136 mmol/L (137-145)
[2017-10-17] MEDS: NITROGLYCERIN OINT 1 INCH/GM PACKET TOPICAL SCH ×4 (06:04→23:18)
[2017-10-17 06:47] LABS: Glucose,Whole Blood 168 mg/dL (75-99)
[2017-10-17 07:51] LABS: Glucose,Whole Blood 150 mg/dL (75-99)
[2017-10-17] MEDS: INSULIN ASPART 100 UNIT/ML 1 ML 10 ML VIAL SQ SCH ×4 (07:58→21:09)
[2017-10-17] MEDS: TICAGRELOR 90 MG TAB PO SCH ×2 (08:00→21:10)
[2017-10-17] MEDS: ASPIRIN 81 MG PO SCH (08:00)
[2017-10-17] MEDS: METOPROLOL TARTRATE 25 MG TAB PO SCH ×4 (08:00→21:10)
[2017-10-17] MEDS: LISINOPRIL 20 MG TAB PO SCH (08:00)
[2017-10-17] MEDS: EZETIMIBE 10 MG TAB PO SCH (08:00)
[2017-10-17] MEDS ORDERED: SODIUM CHLORIDE 0.9% 1,000 ML IV ONE (08:52)
[2017-10-17] MEDS: fentaNYL (PF) 50 MCG/ML 2 ML AMP IV ONE ×2 (09:10→09:19)
[2017-10-17] MEDS ORDERED: LIDOCAINE 1% INJ 10MG/ML (20 ML MDV) SQ ONE (09:12)
[2017-10-17] MEDS ORDERED: VERAPAMIL SYRINGE (5 MG/10 ML) INTRAARTER ONE (09:15)
[2017-10-17] MEDS ORDERED: MIDAZOLAM 2 MG/2 ML VIAL IV ONE (09:16)
[2017-10-17] MEDS ORDERED: BIVALIRUDIN BOLUS 250 MG/50 ML IV ONE (09:16)
[2017-10-17] MEDS ORDERED: BIVALIRUDIN 250 MG in SODIUM CHLORIDE 0.9% 50 ML IV ONE ×2 (09:19→09:43)
[2017-10-17] MEDS: MIDAZOLAM 2 MG/2 ML VIAL IV ONE ×2 (09:20→09:29)
[2017-10-17] MEDS ORDERED: MORPHINE SULFATE 4 MG/ML SYRINGE IV ONE (09:47)
[2017-10-17] MEDS ORDERED: NITROGLYCERIN 1000MCG/10ML SYRINGE INTRACORON ONE (09:53)
[2017-10-17] MEDS ORDERED: IOPAMIDOL-370 125ML BTL INJ ONE (09:54)
[2017-10-17] MEDS ORDERED: ATROPINE SULFATE 0.1 MG/ML 10ML SYRINGE IV PRN (10:01)
[2017-10-17] MEDS ORDERED: NITROGLYCERIN SL TABS 0.4 MG TAB SUBLINGUAL PRN (10:01)
[2017-10-17] MEDS ORDERED: RX INFO: IV CONTRAST WAS GIVEN 1 EACH MISC MISCELLANE PRN (10:01)
[2017-10-17] MEDS ORDERED: ZOLPIDEM 5 MG TAB PO PRN (10:01)
[2017-10-17] MEDS ORDERED: MAG HYDROX/AL HYDROX/SIMETH 30 ML CUP PO PRN (10:01)
[2017-10-17] MEDS ORDERED: SODIUM CHLORIDE 0.9% 1,000 ML IV SCH (10:15)
[2017-10-17] MEDS: HYDROcodone/APAP 5-325MG 1 EACH TAB PO PRN ×2 (10:48→16:00)
[2017-10-17 12:27] LABS: Glucose,Whole Blood 298 mg/dL (75-99)
--- NOTE | 2017-10-17 16:00 | PTCA ---
PERCUTANEOUSTRANS CORORONARY ANGIOGRAPHY DATE OF SERVICE: 10/17/2017 PERFORMING PHYSICIAN: Sidney Ovalle MD, tack puller machine. PROCEDURE PERFORMED: Successful stenting of the proximal left circumflex using a 3.5 x 23 mm Xience CATHI with good angiographic results. INDICATION: This is a pleasant 36-year-old gentleman who presented to the hospital 2 days ago with acute anterior ST-elevation myocardial infarction and underwent a heart catheterization that revealed critical disease involving the LAD with severe disease involving the left circumflex. The culprit lesion was fixed at that time successfully and he was brought today to undergo the non-culprit lesion, which is the left circumflex. APPROACH: Right radial artery. COMPLICATIONS: None. LEVEL OF SEDATION: Moderate with sedation length of 48 minutes. PROCEDURE DESCRIPTION: After obtaining informed consent, the patient was brought to the cardiac analytical laboratory technician. The right radial artery was cannulated using micropuncture technique. The micropuncture wire passed easily. Then I placed a 6-Swedish sheath in the right radial artery. Subsequently the patient was given 2 mg of verapamil IA, and anticoagulation with Angiomax was started IV. Subsequently I engaged the left main using a JL3.5 guiding catheter. A Whisper wire was used to wire the left circumflex coronary artery. I did balloon angioplasty of the left circumflex using a 3.5 x 20 mm balloon. Subsequently I tried to advance a 3.5 x 23 mm Xience CATHI, but the stent would not cross from the left main to left circumflex. I attempted doing a panchito wire with Whisper and run-through, and that did not work either. I tried advancing GuideLiner and that did not work either. At that point I did balloon angioplasty again using this time a 3.5 mm noncompliant balloon, and then I wired the left circumflex using a Whisper and an Iron Man. After that I was able to advance a stent over the Whisper to the proximal left circumflex, where the stent was positioned under fluoroscopy guidance and deployed under 12 atmospheres for 20 seconds. Subsequently I an angiogram which showed good angiographic results without perforation and without dissection, with good angiographic results. The procedure was completed without any complications. POST-PROCEDURE MANAGEMENT: 1. Dual anti-platelet therapy. 2. Risk factor modifications. 3. Follow up with the patient. MMODL / IJN: [id number] /
[2017-10-17 17:32] LABS: Glucose,Whole Blood 171 mg/dL (75-99)
--- NOTE | 2017-10-17 17:50 | P.PN ---
Subjective Progress Note Date: 10/17/17 Principal diagnosis: Acute ST elevation [place]; status post cardiac catheterization with thrombectomy and stent placement 6 years old male with past medical history of hypertension, obesity, herniated disc with chronic back pain, right elbow fracture, who presents because of chest pain of one-day duration. Patient was to found STEMI [ ST elevation myocardial infarction] and he underwent an immediate cardiac cath on 10/15/2017 , S/P aspiration thrombectomy of the left anterior descending artery and successful stenting of the mid LAD. However block sealer were considering stenting the circumflex coronary artery in 48 hours as it is a large artery with 80-85% stenosis. On admission patient underwent CT scan of the chest abdomen and pelvis for suspected dissecting aortic aneurysm which found thoracic character of normal caliber with no evidence of aortic dissection or aneurysm as per radiology report. Chest x-ray shows cardiomegaly. Labs shows mild leukocytosis at 11.7 K. Hemoglobin 17.6 platelet count within normal at 177. INR 1.1. D-dimer 0.9 which is not elevated. Creatinine 0.5. Sodium 140. Potassium 3.8. While troponin were elevated at 0.19. Liver enzymes were mildly elevated Objective - Vital Signs Vital signs: Vital Signs Temp 97.7 F 10/17/17 12:00 Pulse 86 10/17/17 15:00 Resp 16 10/17/17 15:00 BP 148/79 10/17/17 15:00 Pulse Ox 98 10/17/17 15:00 Intake & Output 10/16/17 10/17/17 10/17/17 18:59 06:59 18:59 Intake Total 800 360 651.1 Output Total 400 1 0 Balance 400 359 651.1 Weight 120.6 kg 121.4 kg Intake: IV 651.1 Sodium Chloride 0.9% 1, 500 000 ml @ 100 mls/hr IV . Q10H [facility] Rx#:[id number] Oral 800 360 0 Output: Urine 400 1 0 Other: Voiding Method Urinal # Voids 1 1 - Exam - Constitutional General appearance: Present: average body habitus, cooperative, no acute distress - EENT Eyes: Present: anicteric sclerae, EOMI, PERRLA, normal appearance ENT: Present: hearing grossly normal, normal oropharynx Ears: bilateral: normal - Neck Neck: Present: normal ROM. Absent: lymphadenopathy, rigidity, thyromegaly Carotids: negative: bruit present Thyroid: bilateral: normal size, negative: enlarged, nodule - Respiratory Respiratory: bilateral: CTA, negative: rales, rhonchi, wheezing - Cardiovascular Rhythm: regular Heart sounds: normal: S1, S2 Abnormal Heart Sounds: Absent: systolic murmur, diastolic murmur - Gastrointestinal General gastrointestinal: Present: normal bowel sounds, soft. Absent: distended , organomegaly, tenderness - Genitourinary Genitourinary Comment(s): deferred - Integumentary Integumentary: Present: normal turgor. Absent: jaundiced, rash, ulcer - Neurologic Neurologic: Present: CNII-XII intact. Absent: focal deficits - Musculoskeletal Musculoskeletal: Present: gait normal, strength equal bilaterally - Psychiatric Psychiatric: Present: A&O x's 3, appropriate affect, intact judgment & insight - Labs CBC & Chem 7: 10/17/17 04:49 10/17/17 04:49 Labs: Abnormal Lab Results - Last 24 Hours (Table) 10/16/17 10/16/17 10/17/17 Range/Units 17:10 20:39 04:49 WBC 11.3 H (3.8-10.6) k/uL Plt Count 145 L (150-450) k/uL Sodium (137-145) mmol/L Glucose (74-99) mg/dL POC Glucose (mg/dL) 216 H 181 H (75-99) mg/dL 10/17/17 10/17/17 10/17/17 Range/Units 04:49 06:45 07:50 WBC (3.8-10.6) k/uL Plt Count (150-450) k/uL Sodium 136 L (137-145) mmol/L Glucose 176 H (74-99) mg/dL POC Glucose (mg/dL) 168 H 150 H (75-99) mg/dL 10/17/17 Range/Units 12:25 WBC (3.8-10.6) k/uL Plt Count (150-450) k/uL Sodium (137-145) mmol/L Glucose (74-99) mg/dL POC Glucose (mg/dL) 298 H (75-99) mg/dL Assessment and Plan Assessment: 1. Acute STEMI, S/P immediate cardiac cath with thrombectomy and stent placement 2. Chest pain secondary to above, completely resolved by the time I saw patient 3. Hypertension, essential 4. Leukocytosis, mostly reactive 5. Elevated liver enzymes, 6. chronic back pain 7. New-onset diabetes mellitus, hemoglobin A1c 9.4% (patient informed) Plan: Continue with the same treatment, continue with symptomatic treatment. Cardiology team did cardiac cath and they are following the patient. Patient chest pain is resolved. However patient might need another stenting procedure for the circumflex coronary artery. Patient continued to need intensive care monitoring. He was on antihypertensive medication lisinopril, metoprolol Norvasc. Continue with statin and Zetia. Patient states is on aspirin and Brilinta for his heart disease and stent. Start Lantus 15 units at bedtime for high hemoglobin A1c. Nutrition consult. Continue with Pain management. Monitor lytes and vitals. Continue with GI and DVT prophylaxis. Further recommendation based on the clinical course of the patient. Prognosis remains guarded Time with Patient: Greater than 30
[2017-10-17] MEDS: HYDROmorphone 0.5 MG/0.5 ML SYRINGE IVP PRN (19:13)
[2017-10-17 20:51] LABS: Glucose,Whole Blood 192 mg/dL (75-99)
[2017-10-17] MEDS ORDERED: ATORVASTATIN 80 MG TAB PO SCH (21:00)
[2017-10-17] MEDS: INSULIN DETEMIR 100 UNIT/ML 10 ML VIAL SQ SCH (21:09)
[2017-10-18 06:16] LABS: Glucose,Whole Blood 135 mg/dL (75-99)
[2017-10-18] MEDS: INSULIN ASPART 100 UNIT/ML 1 ML 10 ML VIAL SQ SCH ×2 (06:27→12:49)
[2017-10-18] MEDS: NITROGLYCERIN OINT 1 INCH/GM PACKET TOPICAL SCH ×2 (08:24→15:08)
[2017-10-18] MEDS: METOPROLOL TARTRATE 25 MG TAB PO SCH (08:25)
[2017-10-18] MEDS: EZETIMIBE 10 MG TAB PO SCH (08:25)
[2017-10-18] MEDS: LISINOPRIL 20 MG TAB PO SCH (08:25)
[2017-10-18] MEDS: TICAGRELOR 90 MG TAB PO SCH (08:25)
[2017-10-18] MEDS: ASPIRIN 81 MG PO SCH (08:25)
[2017-10-18 08:28] VITALS: RESP 18
--- NOTE | 2017-10-18 10:57 | P.PN ---
Subjective Progress Note Date: 10/18/17 This is a pleasant 36-year-old gentleman who presented to the hospital with chest discomfort and was diagnosed with acute anterior ST elevation myocardial infarction where he underwent stenting of the LAD which was critically diseased. He was also found to have critical disease involving the left circumflex and yesterday he underwent stenting of the left circumflex with a good angiographic results and without any complication from her right arm approach. I'll follow with her today, he is asymptomatic and denies having any chest pain or discomfort or difficulty breathing or feeling of heart racing or fluttering. He continues to be on dual antiplatelet therapy along with statin. From a perivascular standpoint of view, he can be discharged home. Objective - Vital Signs Vital signs: Vital Signs Temp 97.8 F 10/18/17 08:25 Pulse 89 10/18/17 08:25 Resp 18 10/18/17 08:25 BP 139/89 10/18/17 08:25 Pulse Ox 96 10/18/17 08:25 Intake & Output 10/17/17 10/18/17 10/18/17 18:59 06:59 18:59 Intake Total 1051.1 240 Output Total 400 Balance 651.1 240 Intake: IV 1051.1 Sodium Chloride 0.9% 1, 900 000 ml @ 100 mls/hr IV . Q10H [facility] Rx#:[id number] Oral 0 240 Output: Urine 400 Other: Voiding Method Urinal Toilet Toilet Urinal Urinal # Voids 1 - Constitutional General appearance: Present: no acute distress - Respiratory Respiratory: bilateral: CTA - Cardiovascular Rhythm: regular Heart sounds: normal: S1, S2 - Labs CBC & Chem 7: 10/17/17 04:49 10/18/17 05:53 Labs: Abnormal Lab Results - Last 24 Hours (Table) 10/17/17 10/17/17 10/17/17 Range/Units 12:25 17:30 20:49 Creatinine (0.66-1.25) mg/dL POC Glucose (mg/dL) 298 H 171 H 192 H (75-99) mg/dL 10/18/17 10/18/17 Range/Units 05:53 06:14 Creatinine 0.57 L (0.66-1.25) mg/dL POC Glucose (mg/dL) 135 H (75-99) mg/dL Assessment and Plan Assessment: Assessment #[address] elevation myocardial infarction #2 severe ischemic cardiomyopathy #3 multi vessel coronary artery disease Plan #1 from the cardiovascular standpoint of view, the patient can be discharged home #2 continue dual antiplatelet therapy and high intensity statin #3 follow-up with the patient.
[2017-10-18 11:33] LABS: Glucose,Whole Blood 182 mg/dL (75-99)
[2017-10-18 15:37] VITALS: BP 143/78; PULSE 81; TEMP 98.3
--- NOTE | 2017-10-18 17:00 | P.DS ---
Providers Date of admission: 10/15/17 06:30 Expected date of discharge: 10/18/17 Attending physician: Светлана Hutchins Consults: 10/16/17 09:40 Consult Physician Stat Consulting Provider: Jovany Cole Consult Reason/Comments: post STEMI Do you want consulting provider notified?: Already Contacted 10/17/17 10:02 Consult Physician Routine Consulting Provider: [facility] Consult Reason/Comments: Post Interventional patient Do you want consulting provider notified?: Already Contacted Primary care physician: Lalita Gaitan [facility] Course: This is a pleasant 36 years old male with past medical history of hypertension, obesity, herniated disc with chronic back pain, right elbow fracture, who presents because of chest pain of one-day duration. Patient was to found STEMI [ ST elevation myocardial infarction] and he underwent an immediate cardiac cath on 10/15/2017, S/P aspiration thrombectomy of the left anterior descending artery and successful stenting of the mid LAD. However supervisor pre wave were considering stenting the circumference coronary artery in 48 hours as it is a large artery with 80-85% stenosis. On admission patient underwent CT scan of the chest abdomen and pelvis for suspected dissecting aortic aneurysm which found thoracic character of normal caliber with no evidence of aortic dissection or aneurysm as per radiology report. Chest x-ray shows cardiomegaly. Labs shows mild leukocytosis at 11.7 K. Hemoglobin 17.6 platelet count within normal at 177. INR 1.1. D-dimer 0.9 need which is not elevated. Creatinine 0.5. Sodium 140. Potassium 3.8. While troponin were elevated at 0.19. Liver enzymes were mildly elevated Patient was diagnosed with acute anterior ST elevation DC; he was admitted to ICU started on IV heparin; cardiology was consulted and patient underwent cardiac catheterization with stenting of LAD which was critically diseased; patient was also found to have critical disease involving left circumflex; patient underwent stenting of left circumflex with good angiographic results from his right arm approach; he was started on dual antiplatelet therapy along with statins; patient tolerated treatment well and had no complications; he is being discharged home in a stable condition with a plan to follow-up with cardiology and PCP within one week Patient Condition at Discharge: Fair Plan - Discharge Summary Discharge Rx Participant: No New Discharge Prescriptions: New Aspirin 81 mg PO DAILY chew Atorvastatin [Lipitor] 80 mg PO HS #30 tab Ezetimibe [Zetia] 10 mg PO DAILY #30 tab Insulin Detemir [Levemir] 15 unit SQ HS #4 syr Lisinopril [Zestril] 20 mg PO DAILY #30 tab Metoprolol Tartrate [Lopressor] 50 mg PO BID #60 tab Ticagrelor [Brilinta] 90 mg PO BID #60 tab Continue HYDROcodone/APAP 5-325MG [[place] 5-325] 1 tab PO Q24HR PRN PRN Reason: Pain Ibuprofen [Motrin Ib] 800 mg PO BID PRN PRN Reason: Pain Penicillin V Potassium [Pen Vee K] 500 mg PO TID Discontinued amLODIPine BESYLATE/BENAZEPRIL [Lotrel 10-40 mg Capsule] 1 cap PO DAILY Discharge Medication List HYDROcodone/APAP 5-325MG [[place] 5-325] 1 tab PO Q24HR PRN 10/15/17 [History] Ibuprofen [Motrin Ib] 800 mg PO BID PRN 10/15/17 [History] Penicillin V Potassium [Pen Vee K] 500 mg PO TID 10/15/17 [History] Aspirin 81 mg PO DAILY chew 10/18/17 [Rx] Atorvastatin [Lipitor] 80 mg PO HS #30 tab 10/18/17 [Rx] Ezetimibe [Zetia] 10 mg PO DAILY #30 tab 10/18/17 [Rx] Insulin Detemir [Levemir] 15 unit SQ HS #4 syr 10/18/17 [Rx] Lisinopril [Zestril] 20 mg PO DAILY #30 tab 10/18/17 [Rx] Metoprolol Tartrate [Lopressor] 50 mg PO BID #60 tab 10/18/17 [Rx] Ticagrelor [Brilinta] 90 mg PO BID #60 tab 10/18/17 [Rx] Follow up Appointment(s)/Referral(s): Nick Celis MD [Primary Care Provider] - 1 Week (Please call during normal business hours to make an appointment.) Lalit Reynoso MD [STAFF PHYSICIAN] - 1 Week (Please call during normal business hours to make an appointment.) Patient Instructions/Handouts: *Surgery [facility] - After Heart Catheterization - Mosquito Sprayer Instructions, Myocardial Infarction (DC) Activity/Diet/Wound Care/Special Instructions: Joelle copay $24.99 Discharge Disposition: HOME SELF-CARE Pending Studies Pending Results: None
[2017-10-18] MEDS ORDERED: METOPROLOL TARTRATE 50 MG TAB PO SCH (21:00)
== END 2017-10-18 17:06 | disposition home or self-care (01) | DRG 247 ==
LOC: EC 05:38 → 6ICU 06:30 → 6SEL 10-17 23:58
PROVIDERS: ADMIT Hospitalist; ATTEND Hospitalist
PROC: 4A023N7 Measurement of Cardiac Sampling and Pressure, Left Heart, Percutaneous Approach (ICD-10-PCS; 2017-10-15)
PROC: B2111ZZ Fluoroscopy of Multiple Coronary Arteries using Low Osmolar Contrast (ICD-10-PCS; 2017-10-15)
PROC: 027034Z Dilation of Coronary Artery, One Artery with Drug-eluting Intraluminal Device, Percutaneous Approach (ICD-10-PCS; principal; 2017-10-15 06:30)
PROC: 02C03ZZ Extirpation of Matter from Coronary Artery, One Artery, Percutaneous Approach (ICD-10-PCS; 2017-10-15 06:30)
PROC: 027034Z Dilation of Coronary Artery, One Artery with Drug-eluting Intraluminal Device, Percutaneous Approach (ICD-10-PCS; 2017-10-17)
PROC: 4A023N7 Measurement of Cardiac Sampling and Pressure, Left Heart, Percutaneous Approach (ICD-10-PCS; 2017-10-17)
PROC: B2101ZZ Fluoroscopy of Single Coronary Artery using Low Osmolar Contrast (ICD-10-PCS; 2017-10-17)
DX: I21.09 ST elevation (STEMI) myocardial infarction involving other coronary artery of anterior wall (principal); E11.9 Type 2 diabetes mellitus without complications; I11.9 Hypertensive heart disease without heart failure; I25.5 Ischemic cardiomyopathy; R74.0 Nonspecific elevation of levels of transaminase and lactic acid dehydrogenase [LDH]; I25.10 Atherosclerotic heart disease of native coronary artery without angina pectoris; D72.829 Elevated white blood cell count, unspecified; G89.29 Other chronic pain; F17.210 Nicotine dependence, cigarettes, uncomplicated; E66.9 Obesity, unspecified; M54.9 Dorsalgia, unspecified; Z87.81 Personal history of (healed) traumatic fracture; Z91.81 History of falling; Z68.36 Body mass index [BMI] 36.0-36.9, adult; Z79.2 Long term (current) use of antibiotics; Z79.899 Other long term (current) drug therapy; Z82.69 Family history of other diseases of the musculoskeletal system and connective tissue
CPT/HCPCS: 71045; 71250; 74176; 80048; 80053; 80061; 82550; 82553; 82565; 83036; 83695; 83721; 83735; 84075; 84450; 84460; 84484; 85025; 85379; 85610; 85730; 93005; 93306; 93458; 96374; 99285

== ENCOUNTER 2018-02-20 14:57 | Inpatient (IN) | payer OTHER ==
[2018-02-20] MEDS ORDERED: ASPIRIN 81 MG PO STA (15:29)
--- NOTE | 2018-02-20 15:29 | ED ---
General Adult HPI - General Chief complaint: Chest Pain Stated complaint: chest pain Source: patient Mode of arrival: ambulatory Limitations: no limitations - History of Present Illness Initial comments: Dictation was produced using Veeker dictation software. please excuse any grammatical, word or spelling errors. Chief Complaint: 37-year-old male past medical history of myocardial infarction in September of this year presents via instruction from his press reader to come to the emergency department for concerns of acute coronary syndrome. History of Present Illness: Patient is a 37-year-old male with past medical history of diabetes, dyslipidemia, hypertension presents with chest pain concerning for acute coronary syndrome. He was at his press reader's office Dr. Reynoso for follow-up appointment. He was instructed by his press reader come to the emergency department for cardiac workup. Over the past 2 days patient has been having exertional chest pain that is relieved with rest. States that it reminds him when he was having a heart attack in September of this year. Patient did state he had 100% blockage in one artery and 85% blockage in a different artery. He reports that an EKG was performed at the press reader office not showing any acute processes. Patient denies any chest pain at this time. He says his chest pain is exertional with a crampy epigastric substernal pressure. States that his pain is relieved with rest. The ROS documented in this emergency department record has been reviewed and confirmed by me. Those systems with pertinent positive or negative responses have been documented in the HPI. All other systems are other negative and/or noncontributory. - Related Data Home Medications Medication Instructions Recorded Confirmed Lisinopril [Zestril] 10 mg PO DAILY 02/20/18 02/20/18 metFORMIN HCL [Glucophage] 500 mg PO BID 02/20/18 02/20/18 Previous Rx's Medication Instructions Recorded Aspirin 81 mg PO DAILY chew 10/18/17 Atorvastatin [Lipitor] 80 mg PO HS #30 tab 10/18/17 Ezetimibe [Zetia] 10 mg PO DAILY #30 tab 10/18/17 Metoprolol Tartrate [Lopressor] 50 mg PO BID #60 tab 10/18/17 Ticagrelor [Brilinta] 90 mg PO BID #60 tab 10/18/17 Allergies Allergy/AdvReac Type Severity Reaction Status Date / Time No Known Allergies Allergy Verified 02/20/18 16:03 Review of Systems ROS Statement: Those systems with pertinent positive or pertinent negative responses have been documented in the HPI. ROS Other: All systems not noted in ROS Statement are negative. Past Medical History Past Medical History: Hypertension, Myocardial Infarction (HI) Additional Past Medical History / Comment(s): herniated disc (20ft fall from ladder when was 18 years old), right elbow fx; right ankle: fx & sprains; History of Any Multi-Drug Resistant Organisms: None Reported Past Surgical History: Adenoidectomy, Heart Catheterization With Stent, Hernia Repair, Tonsillectomy Past Anesthesia/Blood Transfusion Reactions: No Reported Reaction Date of Last Stent Placement:: 10/15/2017 Past Psychological History: No Psychological Hx Reported Smoking Status: Current every day smoker Past Alcohol Use History: Occasional Past Drug Use History: None Reported - Past Family History Father History Unknown: Yes Mother Family Medical History: Fibromyalgia General Exam - General Exam Comments Initial Comments: PHYSICAL EXAM: General Impression: Alert and oriented x3, not in acute distress HEENT: Normocephalic atraumatic, extra-ocular movements intact, pupils equal and reactive to light bilaterally, mucous membranes moist. Cardiovascular: Heart regular rate and rhythm, S1&S2 audible, no murmurs, rubs or gallops Chest: Lungs clear to auscultation bilaterally, no rhonchi, no wheeze, no rales Abdomen: Bowel sounds present, abdomen soft, non-tender, non-distended, no organomegaly Musculoskeletal: Pulses present and equal in all extremities, no peripheral edema Motor: Power 5/5 bilaterally, no focal deficits noted Neurological: CN II-XII grossly intact, no focal motor or sensory deficits noted Skin: Intact with no visualized rashes Psych: Normal affect and mood Limitations: no limitations Course Vital Signs 02/20/18 02/20/18 02/20/18 14:59 15:45 16:00 Temperature 97.6 F Pulse Rate 72 72 Respiratory 18 17 20 Rate Blood Pressure 142/90 136/92 136/92 O2 Sat by Pulse 100 98 Oximetry 02/20/18 16:30 Temperature Pulse Rate 69 Respiratory 16 Rate Blood Pressure 148/80 O2 Sat by Pulse 99 Oximetry Medical Decision Making - Medical Decision Making ED course: 37-year-old male past medical history of myocardial infarction with clinical presentation suspicious for acute coronary syndrome. Vital signs upon arrival are within acceptable limits.Chart review did show the patient did have cardiac catheterization in September of this year. Patient was diagnosed with inferior wall STEMI. Cath report showed that he did get a stent of the proximal left circumflex. Patient's press reader called recommended that patient be started on heparin and admitted to selective unit.Return evaluation obtained. CBC unremarkable. Coag panel is unremarkable. Metabolic panel shows no acute processes. Cardiac enzymes are negative. Patient to be admitted to cardiac telemetry on heparin per request by press reader. Patient reevaluated and continues to have no chest pain. Patient is understandable and agreeable to disposition. Patient given aspirin, and Nitropaste is applied. EKG interpretation: Ventricular rate 74, normal sinus rhythm, AK interval 140, QS 92, QTc 450. No AK prolongation, no QTC prolongation, no ST or T-wave changes noted. EKG compared to [default value] showing no changes. Overall, this EKG is unremarkable. Repeat EKG was performed approximately 45 minutes after first EKG showing no dynamic changes. - Lab Data Result diagrams: 02/20/18 15:53 02/20/18 15:53 Lab Results 02/20/18 02/20/18 02/20/18 Range/Units 15:53 15:53 15:53 WBC 9.6 (3.8-10.6) k/uL RBC 5.27 (4.30-5.90) m/uL Hgb 15.6 (13.0-17.5) gm/dL Hct 46.2 (39.0-53.0) % MCV 87.6 (80.0-100.0) fL MCH 29.6 (25.0-35.0) pg MCHC 33.8 (31.0-37.0) g/dL RDW 13.3 (11.5-15.5) % Plt Count 154 (150-450) k/uL Neutrophils % 59 % Lymphocytes % 31 % Monocytes % 6 % Eosinophils % 3 % Basophils % 1 % Neutrophils # 5.7 (1.3-7.7) k/uL Lymphocytes # 3.0 (1.0-4.8) k/uL Monocytes # 0.5 (0-1.0) k/uL Eosinophils # 0.3 (0-0.7) k/uL Basophils # 0.0 (0-0.2) k/uL PT (9.0-12.0) sec INR (<1.2) APTT (22.0-30.0) sec Sodium 141 (137-145) mmol/L Potassium 4.5 (3.5-5.1) mmol/L Chloride 109 H (98-107) mmol/L Carbon Dioxide 23 (22-30) mmol/L Anion Gap 9 mmol/L BUN 14 (9-20) mg/dL Creatinine 0.62 L (0.66-1.25) mg/dL Est GFR (CKD-EPI)AfAm >90 (>60 ml/min/1.73 sqM) Est GFR (CKD-EPI)NonAf >90 (>60 ml/min/1.73 sqM) Glucose 87 (74-99) mg/dL Calcium 9.4 (8.4-10.2) mg/dL Magnesium 2.1 (1.6-2.3) mg/dL Total Bilirubin 0.8 (0.2-1.3) mg/dL AST 29 (17-59) U/L ALT 41 (21-72) U/L Alkaline Phosphatase 112 (38-126) U/L Total Creatine Kinase 95 (55-170) U/L CK-MB (CK-2) 0.9 (0.0-2.4) ng/mL CK-MB (CK-2) Rel Index 0.9 Troponin I <0.012 (0.000-0.034) ng/mL Total Protein 7.2 (6.3-8.2) g/dL Albumin 4.1 (3.5-5.0) g/dL 02/20/18 Range/Units 15:53 WBC (3.8-10.6) k/uL RBC (4.30-5.90) m/uL Hgb (13.0-17.5) gm/dL Hct (39.0-53.0) % MCV (80.0-100.0) fL MCH (25.0-35.0) pg MCHC (31.0-37.0) g/dL RDW (11.5-15.5) % Plt Count (150-450) k/uL Neutrophils % % Lymphocytes % % Monocytes % % Eosinophils % % Basophils % % Neutrophils # (1.3-7.7) k/uL Lymphocytes # (1.0-4.8) k/uL Monocytes # (0-1.0) k/uL Eosinophils # (0-0.7) k/uL Basophils # (0-0.2) k/uL PT 11.1 (9.0-12.0) sec INR 1.2 H (<1.2) APTT 26.0 (22.0-30.0) sec Sodium (137-145) mmol/L Potassium (3.5-5.1) mmol/L Chloride (98-107) mmol/L Carbon Dioxide (22-30) mmol/L Anion Gap mmol/L BUN (9-20) mg/dL Creatinine (0.66-1.25) mg/dL Est GFR (CKD-EPI)AfAm (>60 ml/min/1.73 sqM) Est GFR (CKD-EPI)NonAf (>60 ml/min/1.73 sqM) Glucose (74-99) mg/dL Calcium (8.4-10.2) mg/dL Magnesium (1.6-2.3) mg/dL Total Bilirubin (0.2-1.3) mg/dL AST (17-59) U/L ALT (21-72) U/L Alkaline Phosphatase (38-126) U/L Total Creatine Kinase (55-170) U/L CK-MB (CK-2) (0.0-2.4) ng/mL CK-MB (CK-2) Rel Index Troponin I (0.000-0.034) ng/mL Total Protein (6.3-8.2) g/dL Albumin (3.5-5.0) g/dL Disposition Clinical Impression: Chest pain Disposition: ADMITTED IP TO THIS HOSP Condition: Fair Referrals: Nick Celis MD [Primary Care Provider] - 1-2 days Decision Time: 17:06
[2018-02-20] MEDS ORDERED: HEPARIN SODIUM,PORCINE 5,000 UNIT/ML 1 ML VIAL IV ONE (16:09)
[2018-02-20] MEDS ORDERED: HEPARIN SODIUM,PORCINE 5,000 UNIT/ML 1 ML VIAL IV PRN (16:09)
[2018-02-20 16:17] LABS: Basophils % (A) 1 %; Eosinophils # (A) 0.3 k/uL (0-0.7); Eosinophils % (A) 3 %; HCT 46.2 % (39.0-53.0); HGB 15.6 gm/dL (13.0-17.5); Lymphocytes % (A) 31 %; MCH 29.6 pg (25.0-35.0); MCHC 33.8 g/dL (31.0-37.0); MCV 87.6 fL (80.0-100.0); Mean Platelet Volume 6.4; Monocytes # (A) 0.5 k/uL (0-1.0); Monocytes % (A) 6 %; Neutrophils # (A) 5.7 k/uL (1.3-7.7); Neutrophils % (A) 59 %; Platelet Count 154 k/uL (150-450); RBC 5.27 m/uL (4.30-5.90); RDW 13.3 % (11.5-15.5); WBC 9.6 k/uL (3.8-10.6)
[2018-02-20 16:25] LABS: INR 1.2 (<1.2); Prothrombin Time 11.1 sec (9.0-12.0)
[2018-02-20 16:29] LABS: Creatine Kinase 95 U/L (55-170)
[2018-02-20 16:31] LABS: ALT 41 U/L (21-72); AST 29 U/L (17-59); Albumin 4.1 g/dL (3.5-5.0); Alkaline Phosphatase 112 U/L (38-126); Anion Gap 9 mmol/L; Blood Urea Nitrogen 14 mg/dL (9-20); Calcium 9.4 mg/dL (8.4-10.2); Carbon Dioxide 23 mmol/L (22-30); Chloride 109 mmol/L (98-107); Glucose 87 mg/dL (74-99); Magnesium 2.1 mg/dL (1.6-2.3); Potassium 4.5 mmol/L (3.5-5.1); Sodium 141 mmol/L (137-145); Total Bilirubin 0.8 mg/dL (0.2-1.3); Total Protein 7.2 g/dL (6.3-8.2)
--- NOTE | 2018-02-20 16:34 | XR ---
EXAMINATION TYPE: XR chest 2V DATE OF EXAM: 02/20/2018 COMPARISON: 10/15/2017 HISTORY: Chest pain and hypertension TECHNIQUE: Frontal and lateral views of the chest are obtained. FINDINGS: Copious soft tissues partially obscure the lower lungs. There is no focal air space opacity , pleural effusion, or pneumothorax seen. The cardiac silhouette size is upper limits of normal. Oss eous structures appear intact. IMPRESSION: No acute cardiopulmonary process.
[2018-02-20] MEDS ORDERED: NITROGLYCERIN OINT 1 INCH/GM PACKET TOPICAL STA (16:41)
[2018-02-20 16:42] LABS: Creatine Kinase MB 0.9 ng/mL (0.0-2.4); Troponin I <0.012 ng/mL (0.000-0.034)
--- NOTE | 2018-02-20 16:57 | P.HPIM ---
History of Present Illness Patient is a pleasant 70-year-old gentleman with known history of coronary artery disease and recent cardiac catheterization and stenting in month of October came in with complaints of chest pain exertional nature relieved by rest lasting for few minutes after resting in the midsternal area not associated with food not not associated with deep breathing denied any diaphoresis denied any nausea lightheadedness. Patient pain is similar to the pain when he had myocardial infarction but at the time his pain is much severe. Patient's pain is only pressure-like sensation mild. Patient is compliant with his medications. 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 Patient is being admitted for unstable angina. EKG did not show any significant ST-T wave abnormalities which are acute there are some my early repolarization changes in multiple leads of the EKG. Patient denied any fever chills cough. Patient had a stress test in month of November which was negative for any inducible ischemia. Although he continues to smoke half a pack of cigarettes trying to quit smoking and is on Chantix for that. Review of Systems REVIEW OF SYSTEMS: CONSTITUTIONAL: No fever, no malaise, no fatigue. HEENT: No recent visual problems or hearing problems. Denied any sore throat. CARDIOVASCULAR: No orthopnea, PND, no palpitations, no syncope. PULMONARY: No shortness of breath, no cough, no hemoptysis. GASTROINTESTINAL: No diarrhea, no nausea, no vomiting, no abdominal pain. Normoactive bowel sounds. NEUROLOGICAL: No headaches, no weakness, no numbness. HEMATOLOGICAL: Denies any bleeding or petechiae. GENITOURINARY: Denies any burning micturition, frequency, or urgency. MUSCULOSKELETAL/RHEUMATOLOGICAL: Denies any joint pain, swelling, or any muscle pain. ENDOCRINE: Denies any polyuria or polydipsia. The rest of the 14-point review of systems is negative. Past Medical History Past Medical History: Hypertension, Myocardial Infarction (NM) Additional Past Medical History / Comment(s): herniated disc (20ft fall from ladder when was 18 years old), right elbow fx; right ankle: fx & sprains; History of Any Multi-Drug Resistant Organisms: None Reported Past Surgical History: Adenoidectomy, Heart Catheterization With Stent, Hernia Repair, Tonsillectomy Past Anesthesia/Blood Transfusion Reactions: No Reported Reaction Date of Last Stent Placement:: 10/15/2017 Past Psychological History: No Psychological Hx Reported Smoking Status: Current every day smoker Past Alcohol Use History: Occasional Past Drug Use History: None Reported - Past Family History Father History Unknown: Yes Mother Family Medical History: Fibromyalgia Medications and Allergies Home Medications Medication Instructions Recorded Confirmed Type Aspirin 81 mg PO DAILY chew 10/18/17 02/20/18 Rx Atorvastatin [Lipitor] 80 mg PO HS #30 tab 10/18/17 02/20/18 Rx Ezetimibe [Zetia] 10 mg PO DAILY #30 tab 10/18/17 02/20/18 Rx Metoprolol Tartrate [Lopressor] 50 mg PO BID #60 tab 10/18/17 02/20/18 Rx Ticagrelor [Brilinta] 90 mg PO BID #60 tab 10/18/17 02/20/18 Rx Lisinopril [Zestril] 10 mg PO DAILY 02/20/18 02/20/18 History metFORMIN HCL [Glucophage] 500 mg PO BID 02/20/18 02/20/18 History Allergies Allergy/AdvReac Type Severity Reaction Status Date / Time No Known Allergies Allergy Verified 02/20/18 16:03 Physical Exam Vitals: Vital Signs Temp Pulse Resp BP Pulse Ox 02/20/18 16:30 69 16 148/80 99 02/20/18 16:00 72 20 136/92 98 02/20/18 15:45 17 136/92 02/20/18 14:59 97.6 F 72 18 142/90 100 Intake and Output 02/20/18 02/20/18 02/20/18 06:59 14:59 22:59 Other: Weight 117.934 kg PHYSICAL EXAMINATION: GENERAL: The patient is alert and oriented x3, not in any acute distress. Well developed, well nourished. HEENT: Pupils are round and equally reacting to light. EOMI. No scleral icterus. No conjunctival pallor. Normocephalic, atraumatic. No pharyngeal erythema. No thyromegaly. CARDIOVASCULAR: S1 and S2 present. No murmurs, rubs, or gallops. PULMONARY: Chest is clear to auscultation, no wheezing or crackles. ABDOMEN: Soft, nontender, nondistended, normoactive bowel sounds. No palpable organomegaly. MUSCULOSKELETAL: No joint swelling or deformity. EXTREMITIES: No cyanosis, clubbing, or pedal edema. NEUROLOGICAL: Gross neurological examination did not reveal any focal deficits. SKIN: No rashes. Results CBC & Chem 7: 02/20/18 15:53 02/20/18 15:53 Labs: Abnormal Lab Results - Last 24 Hours (Table) 02/20/18 02/20/18 Range/Units 15:53 15:53 INR 1.2 H (<1.2) Chloride 109 H (98-107) mmol/L Creatinine 0.62 L (0.66-1.25) mg/dL Assessment and Plan Plan: Chest pain with possibly of unstable angina patient is being heparinized will be admitted to repeat sets of troponins and EKGs. Cardiology will be consulted. Nicotine cessation counseling was provided patient will be resumed on his dual antiplatelet therapy and statin. -Coronary artery disease with recent cardiac catheterization and stenting of circumflex -Hyperlipidemia -Hypertension
[2018-02-20] MEDS ORDERED: SODIUM CHLORIDE 0.9% 1,000 ML IV STA (17:06)
[2018-02-20] MEDS: HEPARIN SOD,PORK IN 0.45% NACL 25,000 UNIT in 0.45% NACL 1 500ML.BAG IV SCH (17:10)
--- NOTE | 2018-02-20 19:37 | CONS ---
CONSULTATION Cortes Day is a 37-year-old gentleman who is seen for cardiac evaluation. This patient has a known history of coronary artery disease with a prior history of anterior wall myocardial infarction and the patient had a stent to the LAD and circumflex coronary artery. Patient was doing well. He had a stress test done in November which was normal. The initial echocardiogram showed ejection fraction of 35%. Repeat echocardiogram done in the office showed ejection fraction of 55%. The patient was physically active. Since yesterday, patient has been having intermittent chest discomfort. The pain is in the substernal area which comes with minimal activities and subsides. Patient had several episodes of chest discomfort in the last 24 hours. The pain is not associated with any symptoms of shortness of breath, nausea, or vomiting. EKG was done which did not show any ischemic changes. Patient currently recently also had lab tests done and his LDL level is in the range of 55. His HDL level is 20. The patient is currently taking Lipitor 80 and Zetia 10 mg daily. In view of the recurrent chest pain with minimal activities, suggestive of unstable angina syndrome. Patient is admitted to the hospital for further evaluation and workup. PAST MEDICAL HISTORY: Includes history of diabetes, hypertension, history of prior tobacco use. The patient's home medications included Lisinopril 10 mg daily, Lipitor 80 mg daily, metoprolol 50 mg twice a day, baby aspirin once a day, Lantus, Zetia 10 mg daily and the Lipitor 80 mg daily, Plavix 75 mg daily, metformin 500 mg twice a day. FAMILY HISTORY: There is no family history of premature coronary artery disease. PHYSICAL EXAMINATION: At present reveals a 37-year-old gentleman, does not appear to be in any acute distress. Patient's blood pressure is 130/80 mmHg. HEENT examination is negative. Neck is supple. There is no increase in jugular venous pressure. Both the carotid pulses are felt. There is no bruit. Chest is symmetrical. Heart the PMI is not felt. First and second heart sounds are normal. Lungs are clinically clear to auscultation. Abdomen is soft. Liver and spleen are not enlarged. Bowel sounds are heard. Extremities peripheral pulses are 2+. EKG shows normal sinus rhythm without any acute ischemic changes. FINAL IMPRESSION: This patient is status post recent anterior wall myocardial infarction with stent to the LAD and circumflex coronary artery. The patient is having angina-like chest discomfort on and off for last 24 hours with minimal activities and subsides with rest suggestive of unstable angina syndrome. Rule out non-Q-wave myocardial infarction. We will obtain serial EKGs and cardiac enzymes. Patient will be started on heparin as well as nitrates. If the patient remains stable, we will further evaluate with cardiac catheterization to rule out any evidence of any subacute stent thrombosis or any further progression in the coronary artery disease on Friday. JEANNINE / LUCY: [id number] /
[2018-02-20] MEDS: ATORVASTATIN 80 MG TAB PO SCH (20:40)
[2018-02-20] MEDS: METOPROLOL TARTRATE 50 MG TAB PO SCH (20:40)
[2018-02-20] MEDS: TICAGRELOR 90 MG TAB PO SCH (20:40)
[2018-02-20 20:49] LABS: Glucose,Whole Blood 119 mg/dL (75-99)
[2018-02-20 23:01] LABS: Creatine Kinase 78 U/L (55-170)
[2018-02-20 23:14] LABS: Creatine Kinase MB 0.7 ng/mL (0.0-2.4); Troponin I <0.012 ng/mL (0.000-0.034)
[2018-02-21 05:55] LABS: Glucose,Whole Blood 101 mg/dL (75-99)
[2018-02-21 06:09] LABS: Basophils % (A) 0 %; Eosinophils # (A) 0.3 k/uL (0-0.7); Eosinophils % (A) 3 %; HGB 14.9 gm/dL (13.0-17.5); Lymphocytes # (A) 3.8 k/uL (1.0-4.8); Lymphocytes % (A) 36 %; MCH 29.7 pg (25.0-35.0); MCHC 33.8 g/dL (31.0-37.0); MCV 87.8 fL (80.0-100.0); Mean Platelet Volume 6.5; Monocytes # (A) 0.5 k/uL (0-1.0); Monocytes % (A) 5 %; Neutrophils # (A) 5.8 k/uL (1.3-7.7); Neutrophils % (A) 55 %; Platelet Count 150 k/uL (150-450); RBC 5.02 m/uL (4.30-5.90); RDW 13.4 % (11.5-15.5); WBC 10.7 k/uL (3.8-10.6)
[2018-02-21 06:17] LABS: Cholesterol 93 mg/dL (<200); HDL Cholesterol 19 mg/dL (40-60); LDL Cholesterol,Calculated 39 mg/dL (0-99); Triglycerides 174 mg/dL (<150)
[2018-02-21] MEDS: ASPIRIN 81 MG PO SCH (08:27)
[2018-02-21] MEDS: METOPROLOL TARTRATE 50 MG TAB PO SCH ×2 (08:27→20:31)
[2018-02-21] MEDS: TICAGRELOR 90 MG TAB PO SCH ×2 (08:27→20:31)
[2018-02-21] MEDS: LISINOPRIL 10 MG TAB PO SCH (08:27)
[2018-02-21] MEDS: EZETIMIBE 10 MG TAB PO SCH (08:48)
[2018-02-21] MEDS ORDERED: ALPRAZolam 0.5 MG TAB PO PRN (10:23)
[2018-02-21] MEDS ORDERED: ALPRAZolam 0.25 MG TAB PO PRN (10:23)
[2018-02-21] MEDS ORDERED: NITROGLYCERIN SL TABS 0.4 MG TAB SUBLINGUAL PRN (10:23)
[2018-02-21] MEDS ORDERED: SODIUM CHLORIDE 0.9% 1,000 ML in EMPTY BAG 1 BAG IV ONE (10:23)
--- NOTE | 2018-02-21 10:36 | P.PN ---
Subjective Patient with history of coronary artery disease with previous stents to circumflex admitted with the exertional chest pain appears to have unstable angina will undergo cardiac catheterization on [place] continues to have exertional chest pain. Constitutional: Denied any fatigue denied any fever. Cardio vascular: As mentioned in HPI Gastrointestinal denied any nausea vomiting Pulmonary: Denied any shortness of breath cough Neurologic denied any new focal deficits Objective - Vital Signs Vital signs: Vital Signs Temp 97.8 F 02/21/18 07:39 Pulse 80 02/21/18 07:39 Resp 18 02/21/18 07:39 BP 111/58 02/21/18 07:39 Pulse Ox 98 02/21/18 07:39 Intake & Output 02/20/18 02/21/18 02/21/18 18:59 06:59 18:59 Intake Total 727.648 Output Total 700 Balance 27.648 Weight 117.934 kg 114.6 kg Intake: Intake, IV Titration 487.648 Amount Heparin Sod,Pork in 0.45% 327.648 NaCl 25,000 unit In 0.45 % NaCl 1 500ml.bag @ 8.5 UNITS/KG/HR 20.04 mls/hr IV .Q24H [facility] Rx#: [id number] Sodium Chloride 0.9% 1, 160 000 ml @ 20 mls/hr IV . Q24H [facility] Rx#:[id number] Oral 240 Output: Urine 700 Other: Voiding Method Urinal - Exam PHYSICAL EXAMINATION: GENERAL: The patient is alert and oriented x3, not in any acute distress. Well developed, well nourished. HEENT: Pupils are round and equally reacting to light. EOMI. No scleral icterus. No conjunctival pallor. Normocephalic, atraumatic. No pharyngeal erythema. No thyromegaly. CARDIOVASCULAR: S1 and S2 present. No murmurs, rubs, or gallops. PULMONARY: Chest is clear to auscultation, no wheezing or crackles. ABDOMEN: Soft, nontender, nondistended, normoactive bowel sounds. No palpable organomegaly. MUSCULOSKELETAL: No joint swelling or deformity. EXTREMITIES: No cyanosis, clubbing, or pedal edema. NEUROLOGICAL: Gross neurological examination did not reveal any focal deficits. SKIN: No rashes. - Labs CBC & Chem 7: 02/21/18 05:27 02/20/18 15:53 Labs: Abnormal Lab Results - Last 24 Hours (Table) 02/20/18 02/20/18 02/20/18 Range/Units 15:53 15:53 20:47 WBC (3.8-10.6) k/uL INR 1.2 H (<1.2) APTT (22.0-30.0) sec Chloride 109 H (98-107) mmol/L Creatinine 0.62 L (0.66-1.25) mg/dL POC Glucose (mg/dL) 119 H (75-99) mg/dL Triglycerides (<150) mg/dL HDL Cholesterol (40-60) mg/dL 02/21/18 02/21/18 02/21/18 Range/Units 05:27 05:27 05:27 WBC 10.7 H (3.8-10.6) k/uL INR (<1.2) APTT 35.3 H (22.0-30.0) sec Chloride (98-107) mmol/L Creatinine (0.66-1.25) mg/dL POC Glucose (mg/dL) (75-99) mg/dL Triglycerides 174 H (<150) mg/dL HDL Cholesterol 19 L (40-60) mg/dL 02/21/18 Range/Units 05:55 WBC (3.8-10.6) k/uL INR (<1.2) APTT (22.0-30.0) sec Chloride (98-107) mmol/L Creatinine (0.66-1.25) mg/dL POC Glucose (mg/dL) 101 H (75-99) mg/dL Triglycerides (<150) mg/dL HDL Cholesterol (40-60) mg/dL Assessment and Plan Plan: Chest pain with possibly of unstable angina patient is being heparinized, troponins are negative EKG Zosyn and abnormality and patient will undergo cardiac catheterization on Friday, continue dual antiplatelet therapy statin -Coronary artery disease with recent cardiac catheterization and stenting of circumflex -Hyperlipidemia -Hypertension
[2018-02-21 10:59] LABS: Glucose,Whole Blood 221 mg/dL (75-99)
--- NOTE | 2018-02-21 11:35 | P.PN ---
Subjective Progress Note Date: 02/21/18 Principal diagnosis: Chest pain This is a 37-year-old gentleman who follows with Dr. VC Reynoso the office. He has known history of coronary artery disease with prior anterior wall myocardial infarction with prior LAD and circumflex stent placement. He was seen in the office yesterday at which time he was telling Dr. Reynoso that he 's been experiencing some chest discomfort. He was advised to come to the hospital for admission, initiated on IV heparin, and is scheduled to undergo cardiac catheterization on Friday. He was seen and examined this morning, denied any chest pain or difficulty in breathing. Hemodynamically he is stable. His troponins have been negative. Objective - Vital Signs Vital signs: Vital Signs Temp 96.0 F L 02/21/18 11:28 Pulse 69 02/21/18 11:28 Resp 18 02/21/18 11:28 BP 123/70 02/21/18 11:28 Pulse Ox 97 02/21/18 11:28 Intake & Output 02/20/18 02/21/18 02/21/18 18:59 06:59 18:59 Intake Total 727.648 Output Total 700 Balance 27.648 Weight 117.934 kg 114.6 kg Intake: Intake, IV Titration 487.648 Amount Heparin Sod,Pork in 0.45% 327.648 NaCl 25,000 unit In 0.45 % NaCl 1 500ml.bag @ 8.5 UNITS/KG/HR 20.04 mls/hr IV .Q24H [facility] Rx#: [id number] Sodium Chloride 0.9% 1, 160 000 ml @ 20 mls/hr IV . Q24H [facility] Rx#:[id number] Oral 240 Output: Urine 700 Other: Voiding Method Urinal - Exam PHYSICAL EXAMINATION: GENERAL: 37-year-old gentleman in no acute distress at the time of my examination HEENT: Head is atraumatic, normocephalic. Pupils equal, round. Sclera anicteric. Conjunctiva are clear. Mucous membranes of the mouth are moist. Neck is supple. There is no elevated jugular venous pressure.] bruit is heard. HEART EXAMINATION: Heart S1, S2 normal. No murmur or gallop heard. CHEST EXAMINATION: Lungs are clear to auscultation and precussion. No chest wall tenderness is noted on palpation or with deep breathing. ABDOMEN: Soft, nontender. Bowel sounds are heard. No organomegaly noted. EXTREMITIES: 2+ peripheral pulses with no evidence of peripheral edema and no calf tenderness noted. NEUROLOGIC patient is awake, alert and oriented ?-3. . - Labs CBC & Chem 7: 02/21/18 05:27 02/20/18 15:53 Labs: Abnormal Lab Results - Last 24 Hours (Table) 02/20/18 02/20/18 02/20/18 Range/Units 15:53 15:53 20:47 WBC (3.8-10.6) k/uL INR 1.2 H (<1.2) APTT (22.0-30.0) sec Chloride 109 H (98-107) mmol/L Creatinine 0.62 L (0.66-1.25) mg/dL POC Glucose (mg/dL) 119 H (75-99) mg/dL Triglycerides (<150) mg/dL HDL Cholesterol (40-60) mg/dL 02/21/18 02/21/18 02/21/18 Range/Units 05:27 05:27 05:27 WBC 10.7 H (3.8-10.6) k/uL INR (<1.2) APTT 35.3 H (22.0-30.0) sec Chloride (98-107) mmol/L Creatinine (0.66-1.25) mg/dL POC Glucose (mg/dL) (75-99) mg/dL Triglycerides 174 H (<150) mg/dL HDL Cholesterol 19 L (40-60) mg/dL 02/21/18 02/21/18 Range/Units 05:55 10:56 WBC (3.8-10.6) k/uL INR (<1.2) APTT (22.0-30.0) sec Chloride (98-107) mmol/L Creatinine (0.66-1.25) mg/dL POC Glucose (mg/dL) 101 H 221 H (75-99) mg/dL Triglycerides (<150) mg/dL HDL Cholesterol (40-60) mg/dL Assessment and Plan Plan: Assessment and plan #1 chest pain suggestive of angina, troponins negative 3. #2 history of recent anterior wall myocardial infarction with prior LAD and circumflex stenting #4 hyperlipidemia #5 hypertension #5 diabetes Plan From cardiology's perspective, we'll continue patient on current medications including IV heparin. Patient is scheduled to undergo cardiac catheterization on Friday with Dr. VC Reynoso. The risks and the benefits were explained to the patient in detail further recommendations will be based on those findings and patient's clinical course. DNP note has been reviewed, I agree with a documented findings and plan of care. Patient was seen and examined.
[2018-02-21] MEDS: INSULIN ASPART 100 UNIT/ML 1 ML 10 ML VIAL SQ SCH ×3 (12:05→20:35)
[2018-02-21 16:35] LABS: Glucose,Whole Blood 123 mg/dL (75-99)
[2018-02-21] MEDS: HEPARIN SOD,PORK IN 0.45% NACL 25,000 UNIT in 0.45% NACL 1 500ML.BAG IV SCH (17:38)
[2018-02-21 20:03] LABS: Glucose,Whole Blood 152 mg/dL (75-99)
[2018-02-21] MEDS: ATORVASTATIN 80 MG TAB PO SCH (20:32)
[2018-02-21 23:14] LABS: Hemoglobin A1C 6.2 % (4.0-6.0)
[2018-02-22] MEDS: HEPARIN SOD,PORK IN 0.45% NACL 25,000 UNIT in 0.45% NACL 1 500ML.BAG IV SCH ×2 (00:14→14:35)
[2018-02-22 06:03] LABS: Basophils # (A) 0.1 k/uL (0-0.2); Basophils % (A) 1 %; Eosinophils # (A) 0.2 k/uL (0-0.7); Eosinophils % (A) 3 %; HCT 43.4 % (39.0-53.0); HGB 14.1 gm/dL (13.0-17.5); Lymphocytes # (A) 3.4 k/uL (1.0-4.8); Lymphocytes % (A) 38 %; MCH 29.2 pg (25.0-35.0); MCHC 32.4 g/dL (31.0-37.0); Mean Platelet Volume 6.4; Monocytes # (A) 0.5 k/uL (0-1.0); Monocytes % (A) 6 %; Neutrophils # (A) 4.6 k/uL (1.3-7.7); Neutrophils % (A) 51 %; Platelet Count 138 k/uL (150-450); RBC 4.82 m/uL (4.30-5.90); RDW 13.3 % (11.5-15.5); WBC 8.9 k/uL (3.8-10.6)
[2018-02-22] MEDS: INSULIN ASPART 100 UNIT/ML 1 ML 10 ML VIAL SQ SCH ×4 (06:30→20:38)
[2018-02-22 06:32] LABS: Glucose,Whole Blood 104 mg/dL (75-99)
[2018-02-22] MEDS: METOPROLOL TARTRATE 50 MG TAB PO SCH ×2 (09:38→20:38)
[2018-02-22] MEDS: EZETIMIBE 10 MG TAB PO SCH (09:38)
[2018-02-22] MEDS: LISINOPRIL 10 MG TAB PO SCH (09:38)
[2018-02-22] MEDS: TICAGRELOR 90 MG TAB PO SCH ×2 (09:38→20:38)
[2018-02-22] MEDS: ASPIRIN 81 MG PO SCH (09:38)
--- NOTE | 2018-02-22 10:33 | P.PN ---
Subjective Patient with history of coronary artery disease with previous stents to circumflex admitted with the exertional chest pain appears to have unstable angina will undergo cardiac catheterization on Friday continues to have exertional chest pain. 02/22/2018 No significant overnight events patient continuous to have some exertional chest pain awaiting cardiac catheterization tomorrow Constitutional: Denied any fatigue denied any fever. Cardio vascular: As mentioned in HPI Gastrointestinal denied any nausea vomiting Pulmonary: Denied any shortness of breath cough Neurologic denied any new focal deficits Objective - Vital Signs Vital signs: Vital Signs Temp 97.8 F 02/22/18 03:33 Pulse 64 02/22/18 03:34 Resp 17 02/22/18 03:34 BP 117/68 02/22/18 03:33 Pulse Ox 96 02/22/18 03:33 Intake & Output 02/21/18 02/22/18 02/22/18 19:59 06:59 18:59 Intake Total 240 Balance 240 Intake: IV 0.9 Intake, IV Titration Amount Heparin Sod,Pork in 0.45% NaCl 25,000 unit In 0.45 % NaCl 1 500ml.bag @ 8.5 UNITS/KG/HR 20.04 mls/hr IV .Q24H [facility] Rx#: [id number] Sodium Chloride 0.9% 1, 000 ml @ 20 mls/hr IV . Q24H [facility] Rx#:[id number] Oral 240 Other: Voiding Method # Voids - Exam PHYSICAL EXAMINATION: GENERAL: The patient is alert and oriented x3, not in any acute distress. Well developed, well nourished. HEENT: Pupils are round and equally reacting to light. EOMI. No scleral icterus. No conjunctival pallor. Normocephalic, atraumatic. No pharyngeal erythema. No thyromegaly. CARDIOVASCULAR: S1 and S2 present. No murmurs, rubs, or gallops. PULMONARY: Chest is clear to auscultation, no wheezing or crackles. ABDOMEN: Soft, nontender, nondistended, normoactive bowel sounds. No palpable organomegaly. MUSCULOSKELETAL: No joint swelling or deformity. EXTREMITIES: No cyanosis, clubbing, or pedal edema. NEUROLOGICAL: Gross neurological examination did not reveal any focal deficits. SKIN: No rashes. - Labs CBC & Chem 7: 02/22/18 05:31 02/20/18 15:53 Labs: Abnormal Lab Results - Last 24 Hours (Table) 02/21/18 02/21/18 02/21/18 Range/Units 11:37 11:37 16:32 Plt Count (150-450) k/uL APTT 43.3 H (22.0-30.0) sec POC Glucose (mg/dL) 123 H (75-99) mg/dL Hemoglobin A1c 6.2 H (4.0-6.0) % 02/21/18 02/21/18 02/22/18 Range/Units 16:44 20:02 05:31 Plt Count 138 L (150-450) k/uL APTT 47.5 H (22.0-30.0) sec POC Glucose (mg/dL) 152 H (75-99) mg/dL Hemoglobin A1c (4.0-6.0) % 02/22/18 02/22/18 Range/Units 05:31 06:26 Plt Count (150-450) k/uL APTT 55.4 H (22.0-30.0) sec POC Glucose (mg/dL) 104 H (75-99) mg/dL Hemoglobin A1c (4.0-6.0) % Assessment and Plan Plan: Chest pain with possibly of unstable angina patient is being heparinized, troponins are negative EKG Zosyn and abnormality and patient will undergo cardiac catheterization on Friday, continue dual antiplatelet therapy statin -Coronary artery disease with recent cardiac catheterization and stenting of circumflex -Hyperlipidemia -Hypertension
--- NOTE | 2018-02-22 10:41 | PN ---
PROGRESS NOTE Mr. Day 37-year-old male with a history of coronary disease who presented with symptoms of chest discomfort. He has underwent percutaneous revascularization done by Dr. Ovalle. He is doing well this morning. He has no chest pain. His breathing has been stable. He denies any dizziness or palpitation. He denies any nausea. He continues to be on aspirin once a day, Lipitor 80 mg daily, Zetia 10 mg daily, IV heparin, lisinopril 10 mg daily, metoprolol tartrate 50 mg twice a day, Brilinta 90 mg twice a day. PHYSICAL EXAMINATION: Blood pressure 117/60 with a heart rate in the 60s. LUNGS: Clear. HEART: Regular rate and rhythm, S1, S2. No S3. No rub. ABDOMEN: Soft nontender. EXTREMITIES: No edema. LAB DATA: Hemoglobin 14.1. IMPRESSION: 1. Symptoms of chest discomfort in a patient with known history of coronary artery disease scheduled for coronary angiography tomorrow. 2. Hypertension. 3. Hyperlipidemia. 4. Diabetes mellitus. RECOMMENDATION: We will continue present therapy. We will proceed with a cardiac catheterization tomorrow by Dr. Efraín Reynoso. MMGEORGIEL / NELLIN: [id number] /
[2018-02-22 11:24] LABS: Glucose,Whole Blood 102 mg/dL (75-99)
[2018-02-22 16:43] LABS: Glucose,Whole Blood 144 mg/dL (75-99)
[2018-02-22] MEDS: ATORVASTATIN 80 MG TAB PO SCH (20:38)
[2018-02-22 20:39] LABS: Glucose,Whole Blood 111 mg/dL (75-99)
[2018-02-23] MEDS: ASPIRIN 81 MG PO SCH (05:35)
[2018-02-23] MEDS ORDERED: ASPIRIN 325 MG TAB PO ONE (06:00)
[2018-02-23] MEDS ORDERED: ATORVASTATIN 80 MG TAB PO ONE (06:00)
[2018-02-23 06:05] LABS: Glucose,Whole Blood 105 mg/dL (75-99)
[2018-02-23] MEDS: INSULIN ASPART 100 UNIT/ML 1 ML 10 ML VIAL SQ SCH ×4 (06:15→21:03)
[2018-02-23] MEDS: HEPARIN SOD,PORK IN 0.45% NACL 25,000 UNIT in 0.45% NACL 1 500ML.BAG IV SCH (06:46)
[2018-02-23 07:10] LABS: Basophils # (A) 0.1 k/uL (0-0.2); Basophils % (A) 1 %; Eosinophils # (A) 0.3 k/uL (0-0.7); Eosinophils % (A) 3 %; HCT 43.5 % (39.0-53.0); HGB 14.2 gm/dL (13.0-17.5); Lymphocytes # (A) 2.8 k/uL (1.0-4.8); Lymphocytes % (A) 31 %; MCH 28.6 pg (25.0-35.0); MCHC 32.6 g/dL (31.0-37.0); MCV 87.7 fL (80.0-100.0); Mean Platelet Volume 6.4; Monocytes # (A) 0.6 k/uL (0-1.0); Monocytes % (A) 6 %; Neutrophils # (A) 5.2 k/uL (1.3-7.7); Neutrophils % (A) 57 %; Platelet Count 142 k/uL (150-450); RBC 4.96 m/uL (4.30-5.90); RDW 13.2 % (11.5-15.5)
[2018-02-23] MEDS: LISINOPRIL 10 MG TAB PO SCH (08:29)
[2018-02-23] MEDS: METOPROLOL TARTRATE 50 MG TAB PO SCH ×2 (08:29→19:59)
[2018-02-23] MEDS: TICAGRELOR 90 MG TAB PO SCH ×2 (08:29→20:00)
[2018-02-23] MEDS ORDERED: LIDOCAINE 1% INJ 10MG/ML (20 ML MDV) ONE ×2 (10:51→12:42)
[2018-02-23] MEDS ORDERED: MIDAZOLAM 2 MG/2 ML VIAL ONE (10:51)
[2018-02-23] MEDS ORDERED: fentaNYL (PF) 50 MCG/ML 2 ML AMP ONE (10:58)
[2018-02-23] MEDS: fentaNYL (PF) 50 MCG/ML 2 ML AMP IV ONE ×2 (11:00→11:41)
[2018-02-23] MEDS: MIDAZOLAM 2 MG/2 ML VIAL IV ONE ×2 (11:00→11:05)
[2018-02-23] MEDS ORDERED: LIDOCAINE 1% INJ 10MG/ML (20 ML MDV) SQ ONE ×2 (11:01→12:43)
[2018-02-23] MEDS ORDERED: IV FLUID CONTINUATION 1,000 ML IV ONE (11:05)
[2018-02-23] MEDS ORDERED: BIVALIRUDIN BOLUS 250 MG/50 ML IV ONE (12:06)
[2018-02-23] MEDS ORDERED: BIVALIRUDIN 250 MG in SODIUM CHLORIDE 0.9% 35 ML IV ONE (12:06)
[2018-02-23] MEDS ORDERED: niCARdipine 25 MG/10 ML VIAL ONE (12:08)
[2018-02-23] MEDS: NITROGLYCERIN 1000MCG/10ML SYRINGE INTRACORON ONE ×2 (12:17→12:26)
[2018-02-23] MEDS ORDERED: IOPAMIDOL-370 125ML BTL INJ ONE (12:30)
--- NOTE | 2018-02-23 12:33 | CC ---
CARDIAC CATHETERIZATION REPORT Mr. Day is a 37-year-old gentleman who was admitted to the hospital with symptoms suggestive of unstable angina. This patient has a history of recent anterior wall myocardial infarction and patient underwent a stent to the LAD as well as circumflex coronary artery. Patient has mild disease in the RCA. In view of the new onset of symptoms, patient was recommended to have a cardiac catheterization for definitive diagnosis. PROCEDURE: The right groin was entered using micropuncture needle and a #6-Danish sheath was placed in and selective coronary angiography was then performed in multiple projections. Left ventricular pressures were obtained. The patient tolerated the procedure well. HEMODYNAMICS: The left ventricular end-diastolic pressure is 28 to 32 mmHg prior to angiography. No gradient is noted across the aortic valve. Moderate sedation was used. Sedation time is 18 minutes. SELECTIVE CORONARY ANGIOGRAPHY: Left main coronary artery is normal and patent. LAD is a good caliber blood vessel and there is a 99% stenosis in the midportion of the stent in the LAD. Circumflex coronary artery is a good caliber blood vessels, gives rise to the obtuse marginal branch and the stent is patent. Right coronary artery is diffusely diseased and distal portion of the right coronary artery has a 40% to 50% stenosis. RECOMMENDATIONS: We will review the film with Dr. Ovalle and consider stent to the LAD. We will also discuss with him about FFR of the RCA. MMODL / IJN: [id number] /
[2018-02-23] MEDS ORDERED: ADENOSINE 180 MG in SODIUM CHLORIDE 0.9% 30 ML IVP ONE (12:38)
[2018-02-23] MEDS ORDERED: IOPAMIDOL-370 100ML BTL INJ ONE (12:41)
[2018-02-23] MEDS ORDERED: MAG HYDROX/AL HYDROX/SIMETH 30 ML CUP PO PRN (12:50)
[2018-02-23] MEDS ORDERED: NITROGLYCERIN SL TABS 0.4 MG TAB SUBLINGUAL PRN (12:50)
[2018-02-23] MEDS ORDERED: ATROPINE SULFATE 0.1 MG/ML 10ML SYRINGE IV PRN (12:50)
[2018-02-23] MEDS ORDERED: ZOLPIDEM 5 MG TAB PO PRN (12:50)
[2018-02-23] MEDS ORDERED: RX INFO: IV CONTRAST WAS GIVEN 1 EACH MISC MISCELLANE PRN (12:50)
[2018-02-23] MEDS ORDERED: SODIUM CHLORIDE 0.9% 1,000 ML IV SCH (13:00)
--- NOTE | 2018-02-23 13:27 | P.PN ---
Subjective Patient with history of coronary artery disease with previous stents to circumflex admitted with the exertional chest pain appears to have unstable angina will undergo cardiac catheterization on Friday continues to have exertional chest pain. 02/22/2018 No significant overnight events patient continuous to have some exertional chest pain awaiting cardiac catheterization tomorrow 02/23/2018 Patient underwent cardiac catheterization found to have 90% stenosis of LAD, underwent stenting of LAD Constitutional: Denied any fatigue denied any fever. Cardio vascular: As mentioned in HPI Gastrointestinal denied any nausea vomiting Pulmonary: Denied any shortness of breath cough Neurologic denied any new focal deficits Objective - Vital Signs Vital signs: Vital Signs Temp 97.5 F L 02/23/18 11:27 Pulse 80 02/23/18 11:27 Resp 16 02/23/18 11:27 BP 121/72 02/23/18 11:27 Pulse Ox 96 02/23/18 11:27 Intake & Output 02/22/18 02/23/18 02/23/18 18:59 06:59 18:59 Intake Total 1420 740 971.44 Output Total 400 Balance 1020 740 971.44 Weight 115.3 kg Intake: IV 951.44 0.9 500 Intake, IV Titration 500 500 Amount Heparin Sod,Pork in 0.45% 500 500 NaCl 25,000 unit In 0.45 % NaCl 1 500ml.bag @ 8.5 UNITS/KG/HR 20.04 mls/hr IV .Q24H [facility] Rx#: [id number] Oral 920 240 20 Output: Urine 400 Other: Voiding Method Toilet Toilet Toilet Urinal # Voids 3 - Exam PHYSICAL EXAMINATION: GENERAL: The patient is alert and oriented x3, not in any acute distress. Well developed, well nourished. HEENT: Pupils are round and equally reacting to light. EOMI. No scleral icterus. No conjunctival pallor. Normocephalic, atraumatic. No pharyngeal erythema. No thyromegaly. CARDIOVASCULAR: S1 and S2 present. No murmurs, rubs, or gallops. PULMONARY: Chest is clear to auscultation, no wheezing or crackles. ABDOMEN: Soft, nontender, nondistended, normoactive bowel sounds. No palpable organomegaly. MUSCULOSKELETAL: No joint swelling or deformity. EXTREMITIES: No cyanosis, clubbing, or pedal edema. NEUROLOGICAL: Gross neurological examination did not reveal any focal deficits. SKIN: No rashes. - Labs CBC & Chem 7: 02/23/18 06:30 02/20/18 15:53 Labs: Abnormal Lab Results - Last 24 Hours (Table) 02/22/18 02/22/18 02/23/18 Range/Units 16:39 20:38 05:59 Plt Count (150-450) k/uL POC Glucose (mg/dL) 144 H 111 H 105 H (75-99) mg/dL 02/23/18 Range/Units 06:30 Plt Count 142 L (150-450) k/uL POC Glucose (mg/dL) (75-99) mg/dL Assessment and Plan Plan: unstable angina: Patient underwent cardiac catheterization and stenting of LAD. -Type 2 diabetes mellitus presently on sliding scale insulin. -Coronary artery disease with recent cardiac catheterization and stenting of circumflex -Hyperlipidemia -Hypertension
[2018-02-23] MEDS ORDERED: HYDROmorphone 1 MG/ML 1 ML SYRINGE IVP STA (13:58)
[2018-02-23] MEDS ORDERED: HYDROmorphone 1 MG/ML 1 ML SYRINGE ONE (14:00)
[2018-02-23 15:03] VITALS: BMI 35.4
--- NOTE | 2018-02-23 16:10 | PTCA ---
PERCUTANEOUSTRANS CORORONARY ANGIOGRAPHY PERCUTANEOUS CORONARY INTERVENTION: DATE OF SERVICE: 02/23/2018 PERFORMING PHYSICIAN: Sidney Ovalle MD, machine specialist PROCEDURES PERFORMED: 1. Intravascular ultrasound (IVUS) of the left anterior descending artery. 2. Successful stenting of the mid left anterior descending coronary artery using a 3.5 x 28 mm Xience drug-eluting stent with good angiographic results and reduction of stenosis from 99% to 0%. 3. Fractional flow reserve (FFR) of the right coronary artery. INDICATION: This is a pleasant 37-year-old gentleman who sees Dr. Alfredo Reynoso in the office as an outpatient with known history of coronary artery disease and prior stenting of the LAD several months ago. He was seen in the office recently with chest discomfort concerning for angina. He underwent a heart catheterization today by Dr. Reynoso that revealed critical disease involving the mid LAD with critical in-stent restenosis. Beside that he was found to have intermediate disease involving the right coronary artery. APPROACH: Right common femoral artery. COMPLICATIONS: None. LEVEL OF SEDATION: Moderate, with sedation length of 42 minutes. PROCEDURE DESCRIPTION: Please refer to diagnostic heart catheterization that was performed by Dr. Reynoso. Anticoagulation was initiated using Angiomax. Subsequently I engaged the left main using XP35 LAD guide. A Whisper wire was used to wire the left anterior descending artery. I did after that intravascular ultrasound IVUS of the LAD and I did manual pullback. After that I did measurement of the LAD in the mid portion in the stented segment and that came in to be about 3.5. We did probably undersize the stent from the previous intervention. At that point I did direct stenting of the lesion using a 3.5 x 28 mm Xience CATHI where the stent was positioned under fluoroscopy guidance and deployed under 16 atmospheres for 20 seconds with the following angiogram showing good angiographic results with reduction of stenosis from 99% to 0%. Under the FFR of the RCA after zeroing the Doppler wire and equalizing between the Doppler wire and the guiding catheter we did an FFR of the right coronary artery and that came in to be 0.92, which is nonischemic. The procedure was completed without any complication. CONCLUSION: 1. Critical in-stent restenosis of the mid LAD. 2. Successful stenting of the mid LAD using 3.5 x 28 mm Xience CATHI with good angiographic results. 3. Fractional flow reserve of the RCA was performed and came in to be nonischemic and 0.92. POST-PROCEDURE MANAGEMENT: 1. Maximize medical treatment. 2. Follow up with the patient. JEANNINE / LUCY: [id number] /
[2018-02-23 16:34] LABS: Glucose,Whole Blood 104 mg/dL (75-99)
[2018-02-23] MEDS: EZETIMIBE 10 MG TAB PO SCH (17:24)
[2018-02-23] MEDS: ATORVASTATIN 80 MG TAB PO SCH (19:59)
[2018-02-23] MEDS ORDERED: HYDROmorphone 1 MG/ML 1 ML SYRINGE IVP ONE (20:00)
[2018-02-23 20:49] LABS: Glucose,Whole Blood 137 mg/dL (75-99)
[2018-02-23] MEDS ORDERED: HYDROmorphone 1 MG/ML 1 ML SYRINGE IVP PRN (22:21)
[2018-02-24 04:12] VITALS: PULSE 80
[2018-02-24 05:45] LABS: Basophils # (A) 0.1 k/uL (0-0.2); Basophils % (A) 0 %; Eosinophils # (A) 0.3 k/uL (0-0.7); Eosinophils % (A) 3 %; HCT 43.5 % (39.0-53.0); HGB 14.5 gm/dL (13.0-17.5); Lymphocytes # (A) 2.5 k/uL (1.0-4.8); Lymphocytes % (A) 23 %; MCHC 33.3 g/dL (31.0-37.0); Mean Platelet Volume 6.2; Monocytes # (A) 0.5 k/uL (0-1.0); Monocytes % (A) 5 %; Neutrophils # (A) 7.4 k/uL (1.3-7.7); Neutrophils % (A) 69 %; Platelet Count 157 k/uL (150-450); RDW 13.2 % (11.5-15.5); WBC 10.9 k/uL (3.8-10.6)
[2018-02-24 05:59] LABS: Anion Gap 9 mmol/L; Blood Urea Nitrogen 13 mg/dL (9-20); Calcium 9.1 mg/dL (8.4-10.2); Carbon Dioxide 22 mmol/L (22-30); Chloride 106 mmol/L (98-107); Glucose 193 mg/dL (74-99); Potassium 4.3 mmol/L (3.5-5.1); Sodium 137 mmol/L (137-145)
[2018-02-24 06:03] LABS: Glucose,Whole Blood 171 mg/dL (75-99)
[2018-02-24] MEDS: INSULIN ASPART 100 UNIT/ML 1 ML 10 ML VIAL SQ SCH (06:42)
--- NOTE | 2018-02-24 08:26 | PN ---
PROGRESS NOTE Mr. Day is a 37-year-old male who presented with symptoms of chest discomfort. He has a known history of coronary artery disease, underwent repeat cardiac catheterization yesterday, was found to have significant in-stent restenosis of the LAD, underwent repeat stenting by Dr. Ovalle and he received a 3.5 x 28 mm stent. He is doing well this morning. He has no chest pain. No dizziness. No palpitation. He denies any nausea. He is ambulating without any difficulty. He continues to be on aspirin once a day, Lipitor 80 mg daily, Zetia 10 mg daily, Zestril 10 mg daily, Brilinta 90 mg twice a day. PHYSICAL EXAMINATION: Blood pressure 138/60 with a heart in the 80s. LUNGS: Clear. HEART: Regular rate and rhythm. S1, S2. No S3. No rub. ABDOMEN: Soft, nontender. EXTREMITIES: No edema, right groin hematoma. LAB DATA: Revealed BUN and creatinine 13 and 0.6, hemoglobin of 14.5. IMPRESSION: 1. Status post stenting of the LAD with in-stent restenosis. 2. Prior myocardial infarction. 3. Hyperlipidemia. RECOMMENDATION: Patient should be able to be discharged home today and follow up next week with Dr. Reynoso. MMGEORGIEL / NELLIN: [id number] /
[2018-02-24] MEDS: LISINOPRIL 10 MG TAB PO SCH (09:10)
[2018-02-24] MEDS: EZETIMIBE 10 MG TAB PO SCH (09:10)
[2018-02-24] MEDS: TICAGRELOR 90 MG TAB PO SCH (09:10)
[2018-02-24] MEDS: ASPIRIN 81 MG PO SCH (09:10)
[2018-02-24] MEDS: METOPROLOL TARTRATE 50 MG TAB PO SCH (09:10)
[2018-02-24 12:20] VITALS: BP 139/71; RESP 16; TEMP 96.4
== END 2018-02-24 11:31 | disposition home or self-care (01) | DRG 247 ==
LOC: EC 14:57 → 3SCARD 17:04
PROVIDERS: ADMIT Internal Medicine; ATTEND Internal Medicine
PROC: B2111ZZ Fluoroscopy of Multiple Coronary Arteries using Low Osmolar Contrast (ICD-10-PCS; 2018-02-23)
PROC: 027034Z Dilation of Coronary Artery, One Artery with Drug-eluting Intraluminal Device, Percutaneous Approach (ICD-10-PCS; principal; 2018-02-23 11:00)
PROC: B240ZZ3 Ultrasonography of Single Coronary Artery, Intravascular (ICD-10-PCS; 2018-02-23 11:00)
PROC: 4A033BC Measurement of Arterial Pressure, Coronary, Percutaneous Approach (ICD-10-PCS; 2018-02-23 11:00)
PROC: 4A023N7 Measurement of Cardiac Sampling and Pressure, Left Heart, Percutaneous Approach (ICD-10-PCS; 2018-02-23 11:00)
DX: I25.110 Atherosclerotic heart disease of native coronary artery with unstable angina pectoris (principal); T82.855A Stenosis of coronary artery stent, initial encounter; E11.9 Type 2 diabetes mellitus without complications; E78.5 Hyperlipidemia, unspecified; F17.210 Nicotine dependence, cigarettes, uncomplicated; I10 Essential (primary) hypertension; I25.2 Old myocardial infarction; Z79.84 Long term (current) use of oral hypoglycemic drugs; Z79.82 Long term (current) use of aspirin; Z79.899 Other long term (current) drug therapy; Z79.02 Long term (current) use of antithrombotics/antiplatelets
CPT/HCPCS: 36415; 71046; 80048; 80053; 80061; 82550; 82553; 83036; 83698; 83735; 84484; 85025; 85610; 85730; 92978; 93005; 93458; 93571; 96365; 96376; 99285; C1874

== ENCOUNTER → 2018-06-26 | Outpatient (CLI) | payer OTHER | END | disposition home or self-care (01) | LOC: LABWHC1 11:03 | PROVIDERS: ATTEND Internal Medicine Cardiovascular Disease | DX: I25.10 Atherosclerotic heart disease of native coronary artery without angina pectoris (principal) | CPT/HCPCS: 36415; 83704 ==

== ENCOUNTER → 2019-12-17 | Outpatient (CLI) | payer OTHER ==
--- NOTE | 2019-12-17 13:11 | US ---
EXAMINATION TYPE: US liver DATE OF EXAM: 12/17/2019 COMPARISON: US 2012 CLINICAL HISTORY: R94.5 abnormal liver function test. EXAM MEASUREMENTS: Liver Length: 14.9 cm Gallbladder Wall: 0.2 cm CBD: 0.5 cm Right Kidney: 13.9 x 5.6 x 7.3 cm Pancreas: not well visualized due to midline bowel gas Liver: difficult to penetrate Gallbladder: No stones seen Evidence for sonographic Forte's sign: No CBD: wnl Right Kidney: No hydronephrosis or masses seen IMPRESSION: Fatty liver
== END | disposition home or self-care (01) ==
LOC: RADUSWWP 12:15
PROVIDERS: ATTEND Internal Medicine
DX: K76.0 Fatty (change of) liver, not elsewhere classified (principal)
CPT/HCPCS: 76705

== ENCOUNTER 2024-07-28 06:17 | Day surgery (SDC) | payer BC, OTHER ==
[~2024-07-28 06:17] MED LIST: DEXAMETHASONE SOD PHOSPHATE 4 MG/ML 1 ML VIAL IV ONE; FAMOTIDINE 20 MG/2 ML VIAL IV PRN; HYDROmorphone 0.5 MG/0.5 ML SYRINGE IVP PRN; LACTATED RINGERS 1,000 ML IV SCH; LIDOCAINE 1% (10MG/ML) FOR IV START INTRADERMA PRN; ONDANSETRON 4 MG/2 ML VIAL IVP ONE; OXYMETAZOLINE 0.05% NASL SPRAY 1 SPRAY BOTTLE EA NOSTRIL PRN; droPERidol 2.5 MG/ML VIAL IVP ONE
[2024-07-28] MEDS: OXYMETAZOLINE 0.05% NASL SPRAY 1 SPRAY BOTTLE NASAL ONE ×5 (06:48→07:08)
[2024-07-28] MEDS: IV FLUID CONTINUATION 1,000 ML IV ONE (06:51)
[2024-07-28] MEDS: ONDANSETRON 4 MG/2 ML VIAL IVP ONE (07:02)
[2024-07-28] MEDS: DEXAMETHASONE SOD PHOSPHATE 4 MG/ML 1 ML VIAL IVP ONE (07:03)
[2024-07-28 07:04] LABS: Glucose,Whole Blood 92 mg/dL (70-110)
[2024-07-28] MEDS: FAMOTIDINE 20 MG/2 ML VIAL IVP ONE (07:09)
[2024-07-28] MEDS ORDERED: ROCURONIUM 10 MG/ML (5 ML VIAL) IV ONE (07:28)
[2024-07-28] MEDS ORDERED: MIDAZOLAM 2 MG/2 ML VIAL ONE (07:28)
[2024-07-28] MEDS ORDERED: PROPOFOL 10 MG/ML 20 ML VIAL IV ONE (07:28)
[2024-07-28] MEDS ORDERED: SUGAMMADEX SODIUM 100 MG/ML SYR IV ONE (07:28)
[2024-07-28] MEDS ORDERED: fentaNYL (PF) 50 MCG/ML 2 ML AMP ONE (07:28)
[2024-07-28] MEDS ORDERED: SUCCINYLCHOLINE CHLORIDE 200 MG/10 ML VIAL IV ONE (07:28)
[2024-07-28] MEDS ORDERED: LIDOCAINE 1% INJ 10MG/ML (20 ML MDV) ONE (07:28)
[2024-07-28] MEDS ORDERED: PHENYLEPHRINE 10 MG/ML VIAL ONE (07:28)
[2024-07-28] MEDS: ceFAZolin 2 GM in DEXTROSE 5% IN WATER 50 ML IVPB PRN (07:28)
[2024-07-28] MEDS: LIDOCAINE 1%-EPI 1:100,000 20 ML VIAL SUBMUCOSAL ONE (07:37)
[2024-07-28] MEDS: BACITRACIN ZINC 500 UNIT/GM OINT 28.4 GM TUBE TOPICAL ONE (07:48)
[2024-07-28] MEDS: LACTATED RINGERS 1,000 ML IV ONE (07:57)
--- NOTE | 2024-07-28 08:06 | P.OP ---
Date of Procedure: 07/28/24 Preoperative Diagnosis: deviated nasal septum Inferior turbinate hypertrophy Postoperative Diagnosis: same Procedure(s) Performed: septoplasty Outfracture and submucous resection of the inferior turbinates Anesthesia: JAYJAYA Surgeon: Cristian Coburn Estimated Blood Loss (ml): 5 Pathology: other (nasal septal bone and cartilage) Condition: stable Disposition: PACU Indications for Procedure: a 43-year-old white male who had difficulties with chronic nasal airway obstruction and congestion which has not improved with medical management Operative Findings: septum deviated to the left anteriorly to the right posteriorly inferior turbinate hypertrophy bilateral Description of Procedure: DESCRIPTION OF PROCEDURE: The patient was brought to the operative suite, placed in the supine position. The patient underwent induction of general anesthesia with oral endotracheal intubation without difficulty. The patient was prepped and draped in the usual aseptic fashion. 1% lidocaine with 1:100,000 epinephrine was infused submucosally on both sides of the nasal septum. While this was taking vasoconstrictive effect, the inferior turbinates were infractured with a [place] elevator. Partial submucous resection of the inferior turbinates was performed with Coblation device ablating a portion of the submucosal soft tissue. The inferior turbinates were then outfractured with a [place] elevator. A left hemitransfixion incision was then made through the mucoperichondrial. Mucoperiosteal flap on the left elevated. Bony cartilaginous junction was disarticulated and mucoperiosteal flap on the right was elevated. Bony nasoseptal deformity were removed with Armando forceps and an inferior cartilaginous strip was removed, leaving a full 1.5 cm caudal strut. Checking intranasally, this corrected the nasal septal deformities and the hemitransfixion incision was closed with running 4-0 chromic suture. The bilateral Olvera airway splints coated in bacitracin ointment were placed in the nasal cavities and sutured transseptally with 4-0 nylon suture. The patient was then suctioned in an orogastric fashion. The patient was allowed to emerge from general anesthesia, having tolerated the procedure well and was extubated in the operating suite, transferred to postoperative recovery area in satisfactory condition.
[2024-07-28 08:35] VITALS: TEMP 97.9
[2024-07-28 09:10] VITALS: RESP 16
[2024-07-28 09:52] VITALS: BP 124/80; PULSE 78
== END 2024-07-28 10:00 | disposition home or self-care (01) ==
LOC: OR 06:17
PROVIDERS: ATTEND Otolaryngology
DX: J34.2 Deviated nasal septum (principal); J34.3 Hypertrophy of nasal turbinates; E11.9 Type 2 diabetes mellitus without complications; I10 Essential (primary) hypertension; I25.2 Old myocardial infarction; Z87.891 Personal history of nicotine dependence; Z95.5 Presence of coronary angioplasty implant and graft
CPT/HCPCS: 30520; 30140; J2250; J0330; J1100; J0690; J2405; J2003; J3010; J3490; J2704; J2371; 88300